=== PATIENT | male | born 1960 | race Caucasian/White ===

== ENCOUNTER → 2017-07-18 07:09 | Outpatient (CLI) | payer BC, OTHER, SELFPAY ==
[2017-07-18 10:34] LABS: Cholesterol 196 mg/dL (200); Glucose 127 mg/dL (74-106); High Density Lipoprotein 50 mg/dL; Triglycerides 99 mg/dL; Very Low Density Lipoprotein 20 mg/dL (5-40)
[2017-07-18 11:12] LABS: Hemoglobin A1c 7.7 % (4.2-6.3)
== END ==
PROVIDERS: Family Provider Family Medicine; PCP Family Medicine; Visit Provider Family Medicine
DX: E11.9 Type 2 diabetes mellitus without complications (principal); E78.5 Hyperlipidemia, unspecified
CPT/HCPCS: 36415; 80061; 82947; 83036

== ENCOUNTER → 2018-03-09 16:16 | Outpatient (CLI) | payer BC, OTHER, SELFPAY ==
[2016-03-22 03:32] VITALS: BMI 29.6
== END ==
PROVIDERS: Family Provider Family Medicine; PCP Family Medicine; Referring Provider Nurse Practitioner Family; Visit Provider Nurse Practitioner Family
DX: R30.0 Dysuria (principal)
CPT/HCPCS: 87086

== ENCOUNTER → 2018-08-11 07:25 | Outpatient (CLI) | payer BC, OTHER, SELFPAY ==
[2016-03-22 03:32] VITALS: BMI 29.6
[2018-08-11 10:31] LABS: Anion Gap 4 (5-15); BUN 12 mg/dL (7-18); BUN/Creat Ratio 11.8 RATIO (10-20); Calcium,Total 8.6 mg/dL (8.5-10.1); Chloride 104 mmol/L (98-107); Cholesterol 200 mg/dL (200); Creatinine, Serum 1.02 mg/dL (0.70-1.30); EST Glomerular Filtration Rate 80 mL/min (>60); Est Glom Filt Rate - Afr Amer 97 mL/min (>60); Glucose 101 mg/dL (74-106); High Density Lipoprotein 53 mg/dL; PSA,Total - Annual Screen 0.37 ng/mL (0.00-4.00); Potassium 3.7 mmol/L (3.5-5.1); Sodium Level 138 mmol/L (136-145); Triglycerides 99 mg/dL; Very Low Density Lipoprotein 20 mg/dL (5-40)
== END ==
PROVIDERS: Family Provider Family Medicine; PCP Family Medicine; Referring Provider Family Medicine; Visit Provider Family Medicine
DX: I10 Essential (primary) hypertension (principal); E11.9 Type 2 diabetes mellitus without complications; Z12.5 Encounter for screening for malignant neoplasm of prostate
CPT/HCPCS: 36415; 80048; 80061; 83036; 84153; G0103

== ENCOUNTER 2019-02-21 12:40 | Emergency (ER) | payer BC, OTHER, SELFPAY ==
[2019-02-21 12:40] VITALS: BP 135/79; PULSE 77; RESP 15; TEMP 36.7; O2SAT 99; BMI 27.7
--- NOTE | 2019-02-21 12:54 | CT_ITS ---
STUDY: CT ABDOMEN AND PELVIS WITHOUT CONTRAST REASON FOR EXAM: Male, 58 years old. Back pain. Possible kidney stone. RADIATION DOSAGE (If Supplied By Facility): CTDIvol = ( 13.90 ) mGy, DLP = ( 775.46 ) mGycm TECHNIQUE: Transaxial images were obtained from the dome of the diaphragm to the symphysis pubis without oral contrast, and without intravenous contrast. Sagittal and coronal images were reconstructed. Individualized dose optimization techniques were used for this CT. COMPARISON: None. FINDINGS: The visualized lung bases are unremarkable. The visualized portions of the heart are within normal limits. Normal liver. There is a solitary gallstone. This measures 9.2 mm. Normal spleen. Normal pancreas. Normal bilateral adrenal glands. Normal right kidney. Left perinephric stranding. The left kidney is engorged. Small amount of fluid is seen in the left perinephric space. There is evidence of left hydronephrosis and proximal left hydroureter due to a 6.5 mm calculus in the proximal left ureter. Normal visualized stomach. Normal small intestine. Normal colon. The appendix is visualized and appears normal. Normal abdominal aorta. Normal inferior vena cava. Normal retroperitoneum. Normal urinary bladder. There are prostatic calcifications. There is a left-sided inguinal hernia containing adipose tissue. Findings suggestive of hemangioma of the T12 vertebrae. CT/Abdomen/Pelvis without Cont IMPRESSION: 6.5 mm calculus in the proximal left ureter causing left hydronephrosis with left perinephric stranding and fluid in the left perinephric space. 9.2 mm solitary gallstone. Electronically Signed: Harsha Bah, at 14:16 EST , Service support ,
--- NOTE | 2019-02-21 12:58 | ED.VIS.GEN ---
History of Present Illness Chief Complaint: Back Informant: Patient Onset: Yesterday Maximum Severity: Mild Narrative: Patient complains of lumbar back discomfort radiating to the left side that began yesterday as he was stomping on what he describes a floating floor trying to get into position during installation, he stomped multiple times over the back discomfort when saw his chiropractor today who did some therapies he felt that the pain now is radiating to the left side like his last episode of kidney stone pain from 12 years ago when he presents for evaluation His diabetes is well controlled had no direct trauma to the back he has no numbness weakness paresthesias bowel and bladder habits have been unremarkable he has no other complaints Past Medical History - Allergies and Home Meds Allergies/Adverse Reactions: Allergies acetaminophen [From Tylenol] Allergy (Verified 02/21/19 12:43) Rash Primary Care Physician: Frederick Clarke MD [STAFF PHYSICIAN] - Past Medical History: - Smoking Status: Current some day smoker Review of Systems ROS: - Diabetes and kidney stones General: Denies: Chills, Fever, Sweats Eyes: Denies: Visual changes - bilaterally, Diplopia ENT: Denies: Rhinorrhea, Sore throat Cardiovascular: Denies: Chest pain, Palpitations Respiratory: Denies: Dyspnea, Cough, Dyspnea on exertion Gastrointestinal: Denies: Abdominal pain, Nausea, Vomiting, Diarrhea, Melena, Hematochezia Genitourinary: Denies: Dysuria, Hematuria, Frequency Musculoskeletal: Reports: Back pain. Denies: Extremity Pain Skin: Denies: Rash, Wounds Neurological: Denies: Headache, Weakness, Numbness Physical Exam Vital Signs/Narrative: Vital Signs Temp Pulse Resp BP Pulse Ox 02/21/19 12:40 98.0 F 77 15 135/79 H 99 General: Well nourished, Well developed, No Acute Distress Head: Normocephalic, Atraumatic Eyes: Perrl, EOMI ENT: Moist mucous membranes, No rhinorrhea Neck: Supple, Nontender Cardiovascular: Regular rate, Regular rhythm, No murmurs Respiratory: No distress, CTA bilaterally, Chest nontender Abdomen: Soft, Nontender, Nondistended, Normal bowel sounds Back: Normal Inspection, CVA tenderness, - - He has some discomfort over the left flank area Extremities: Nontender, No edema Skin: Normal color, No rash Neurological: Alert, Oriented x3, Cranial nerves II-XII grossly intact, Normal Strength, Normal Sensation Psychological: Normal affect, Normal Mood Diagnostic/Tx/Re-eval - Medical Decision Making Patient's physical exam is really unremarkable there is a subjective sense of vague low lumbar back pain he feels as if it is radiating more to the right there is no abdominal pain he is able to stand and walk heel raise toe raise knee bend he absolutely denies any abdominal pain and he assures me his bowel and habits have been normal Given his expressed concerns CT flank UA screening labs pain management Patient screening labs white count 14,000, UA with some hematuria, abdominal CT shows a left-sided 7 mm proximal structuring stone with hydronephrosis extravasation and see that report, Patient's been resting comfortably he has had intermittent flares of his pain there is no urology coverage at this institution, discussed transfer options with the patient his the facilities locally have no capacity per staff, the family has agreed to transfer to [facility] as they have local family in the area they would like to be transferred via private vehicle he has been treated with IV Rocephin and culture has been ordered He has been treated with pain management antibiotics I spoke with [facility] transfer center they have accepted him in transfer, Dr. Fabian and again the will take him by private vehicle directly to the ED Transfer to [facility] via private vehicle Final impression left side obstructing kidney stone ED Disposition - Plan for ED Patient: Diagnosis: Obstructing left kidney stone Referrals: Frederick Clarke MD [STAFF PHYSICIAN] - Additional Instructions: Go directly to [facility] emergency department today
[2019-02-21 13:23] LABS: Mucous, Urine 0 SEEN /hpf (<or=2+); Red Blood Cells-Urine 0 SEEN /hpf (0-5); Squamous Epithelial Cells - UA 0 SEEN /hpf (0-5); White Blood Cells 0 SEEN /hpf (0-5)
[2019-02-21 13:26] LABS: Color, Urine Yellow (Yellow); Glucose, Dipstick 1000 mg/dl (Normal); Leukocyte Esterase-Dipstick Negative /ul (Negative); Nitrite-Dipstick Negative (Negative); Occult Blood-Urine 150 /ul (Negative); Protein-Dipstick 30 mg/dl (Negative); Urine Bilirubin Dipstick Negative (Negative); Urine Clarity Sl. Cloudy (Clear); Urine Urobilinogen Normal (Normal)
[2019-02-21 13:28] LABS: Ketone-Dipstick 150 mg/dl (Negative)
[2019-02-21] MEDS: 0.9% Normal Saline 1,000 ML 250 ML IV (13:28)
[2019-02-21] MEDS: Ketorolac 30 MG/ML Syringe IV (13:29)
[2019-02-21] MEDS: morphine 8 MG/ML Syringe IV ×2 (13:29→15:19)
[2019-02-21] MEDS: Ondansetron 4 MG/2 ML Vial IV (13:29)
[2019-02-21] MEDS: 0.9% Normal Saline 1,000 ML 999 ML IV (13:31)
[2019-02-21 13:39] LABS: Bacteria RARE /hpf (None Seen)
[2019-02-21 13:40] LABS: Calcium Oxalate Crystals Ur 2+ /hpf (<or=2+)
[2019-02-21 13:48] LABS: Absolute Lymphocyte Count 0.49 X10^3/uL (0.83-4.51); Absolute Neutrophil Count 12.6 X10^3/uL (2.0-7.7); Basophil# 0.04 X10^3/uL; Basophil% 0.3 % (0-1); Eosinophil# 0.01 X10^3/uL; Eosinophils% 0.1 % (0-5); Hematocrit 45.2 % (40-54); Hemoglobin 15.4 g/dL (13.0-16.5); Lymphocyte # 0.49 X10^3/ul (4.0); Lymphocyte % 3.5 % (19-41); Mean Corp Hgb Conc 34.1 g/dL (32-36); Mean Corpuscular Hgb 28.8 pg (27.0-32.0); Mean Corpuscular Volume 84.5 fL (80-94); Mean Platelet Vol. 9.3 fl (6.2-12.0); Monocyte# 0.86 X10^3/uL; Monocyte% 6.1 % (0-10); NRBC Flagged by Analyzer 0 % (0-5); Neutrophil # 12.63 X10^3/uL (2.7-7.7); Neutrophil % 89.6 % (47-70); POSITIVE DIFFERENTIAL YES; Platelet Count 220 K/mm3 (150-450); RBC Distribution Width CV 12.3 % (11.6-14.6); RBC Distribution Width SD 37.3 fl (35.1-43.9); Red Blood Count 5.35 M/mm3 (4.6-6.2); White Blood Count 14.1 K/mm3 (4.4-11.0)
[2019-02-21 13:59] LABS: Anion Gap 6 (5-15); BUN 12 mg/dL (7-18); BUN/Creat Ratio 9.1 RATIO (10-20); Calcium,Total 8.5 mg/dL (8.5-10.1); Chloride 97 mmol/L (98-107); Creatinine, Serum 1.32 mg/dL (0.70-1.30); Differential Indicated SCAN CRITERIA MET; EST Glomerular Filtration Rate 59 mL/min (>60); Est Glom Filt Rate - Afr Amer 72 mL/min (>60); Estimated Creatinine Clearance 63.75 ml/min; Glucose 228 mg/dL (74-106); Sodium Level 132 mmol/L (136-145)
[2019-02-21] MEDS: Morphine 4 MG/ML Syringe IV (14:31)
[2019-02-21 15:22] VITALS: BP 133/71; PULSE 66; RESP 18; O2SAT 98
[2019-02-21] MEDS: Ceftriaxone 1 GM/50 ML BAG IV (15:48)
[2019-02-21] MEDS: oxyCODONE 5 MG Tablet PO (16:24)
[2019-02-21 16:42] VITALS: BP 133/71; PULSE 66; RESP 18; O2SAT 98
[2019-02-21 16:45] LABS: Bedside Glucose 196 mg/dL (70-110)
== END 2019-02-21 16:46 | disposition short-term general hospital (02) ==
LOC: ED 13:12
PROVIDERS: Emergency Provider Emergency Medicine; Family Provider Family Medicine; PCP Family Medicine
DX: N13.2 Hydronephrosis with renal and ureteral calculous obstruction (principal); K80.20 Calculus of gallbladder without cholecystitis without obstruction; E11.9 Type 2 diabetes mellitus without complications; F17.200 Nicotine dependence, unspecified, uncomplicated; Z79.84 Long term (current) use of oral hypoglycemic drugs; Z79.4 Long term (current) use of insulin
CPT/HCPCS: 36415; 74176; 80048; 81001; 82009; 82962; 85025; 87086; 87088; 96361; 96365; 96375; 96376; 99284; J2405

== ENCOUNTER → 2019-04-04 12:18 | Outpatient (CLI) | payer BC, OTHER, SELFPAY | PROVIDERS: PCP Family Medicine; Referring Provider Family Medicine; Visit Provider Family Medicine | DX: R68.89 Other general symptoms and signs (principal) | CPT/HCPCS: 87633; 87804 ==

== ENCOUNTER → 2020-02-04 09:58 | Outpatient (CLI) | payer BC, OTHER, SELFPAY ==
[2020-02-04 12:19] LABS: Anion Gap 5 (5-15); BUN 13 mg/dL (7-18); BUN/Creat Ratio 12.6 RATIO (10-20); Calcium,Total 8.7 mg/dL (8.5-10.1); Chloride 105 mmol/L (98-107); Cholesterol 242 mg/dL (200); Creatinine, Serum 1.03 mg/dL (0.70-1.30); EST Glomerular Filtration Rate 79 mL/min (>60); Est Glom Filt Rate - Afr Amer 95 mL/min (>60); Glucose 173 mg/dL (74-106); High Density Lipoprotein 53 mg/dL; Potassium 4.1 mmol/L (3.5-5.1); Sodium Level 139 mmol/L (136-145); Triglycerides 100 mg/dL; Very Low Density Lipoprotein 20 mg/dL (5-40)
[2020-02-04 12:33] LABS: Microalbumin,Random Urine 11.3 mg/L (NO RANGE EST.); Microalbumin:Creatinine Ratio 5.4 mg/g CRE (<30 mg/g CRE)
== END ==
PROVIDERS: PCP Family Medicine; Referring Provider Family Medicine; Visit Provider Family Medicine
DX: E11.9 Type 2 diabetes mellitus without complications (principal)
CPT/HCPCS: 36415; 80048; 80061; 82043; 82570

== ENCOUNTER → 2020-05-21 08:59 | Outpatient (CLI) | payer OTHER, SELFPAY ==
[2020-05-21 10:53] LABS: Anion Gap 4 (5-15); BUN 14 mg/dL (7-18); BUN/Creat Ratio 14.4 RATIO (10-20); Chloride 104 mmol/L (98-107); Cholesterol 200 mg/dL (200); Creatinine, Serum 0.97 mg/dL (0.70-1.30); EST Glomerular Filtration Rate 84 mL/min (>60); Est Glom Filt Rate - Afr Amer 102 mL/min (>60); Glucose 128 mg/dL (74-106); High Density Lipoprotein 49 mg/dL; Potassium 4.6 mmol/L (3.5-5.1); Sodium Level 139 mmol/L (136-145); Triglycerides 97 mg/dL; Very Low Density Lipoprotein 19 mg/dL (5-40)
[2020-05-21 10:55] LABS: Microalbumin,Random Urine 7.2 mg/L (NO RANGE EST.); Microalbumin:Creatinine Ratio 4.2 mg/g CRE (<30 mg/g CRE)
== END ==
PROVIDERS: PCP Family Medicine; Referring Provider Family Medicine; Visit Provider Family Medicine
DX: E11.9 Type 2 diabetes mellitus without complications (principal)
CPT/HCPCS: 36415; 80048; 80061; 82043; 82570

== ENCOUNTER 2023-06-22 13:20 | Observation (INO) | payer BC, SELFPAY ==
[2023-06-22] VITALS (12 sets, daily range): BP systolic 114–171; BP diastolic 66–86; PULSE 72–87; RESP 12–27; TEMP 35.8–37; O2SAT 95–99; BMI 27.4; BMI 26.7
--- NOTE | 2023-06-22 13:27 | CT_ITS ---
STUDY: CT HEAD STROKE PROTOCOL W/O CONTRAST INJECTION REASON FOR EXAM: Male, 62 years old. CVA RADIATION DOSAGE (If Supplied By Facility): CTDIvol = ( 44.99 ) mGy, DLP = ( 846.73 ) mGycm TECHNIQUE: Transaxial CT imaging of the brain was performed without administration of intravenous contrast material. Individualized dose optimization techniques were used for this CT. COMPARISON: No relevant priors. FINDINGS: Normal soft tissue structures. Normal calvarium. There is mild cerebral atrophy with widening of the extra-axial spaces and ventricular dilatation. Normal white matter tracts of the cerebral hemispheres. Normal basal ganglia and thalami. Normal brainstem. Normal cerebellum. There is prominence of the cisterna magna. This is a normal variant. There is no intracranial hemorrhage. There are no findings of an acute ischemic infarction. Mucosal polyp or retention cyst at the base of the right maxillary sinus. ASPECT score: 10 CT/STROKE Brain/Head without Cont IMPRESSION: Mild cerebral atrophy. No acute abnormality is seen. N.B. : The above Results were Read Back by Harsha Bah MD to Dr Lio MD, and understanding confirmed on 06/22/2023 13:47:54 (ET). Electronically Signed: Harsha Bah MD at 13:49 EDT ,
--- NOTE | 2023-06-22 13:28 | ED.VIS.STROK ---
HPI History of Present Illness Chief Complaint: Neuro S/Sx Informant: patient and friend Onset/Context/Timing Onset: Today and Hours Context: Gradual Onset Timing: Continuous Quality and Location: Positive for Expressive Aphasia Current Severity: Gone Maximum Severity: Mild Associated Symptoms Associated Symptoms: Negative for Headache, Nausea, Vomiting or Chest Pain Narrative Narrative: 62-year-old insulin dependent diabetic male. With onset of around 1140 with right eye blurry vision. Then about 1230 he developed trouble with his speech where he was having trouble putting words together according to his coworker is with him. He denies any headache. He denies any chest pain or shortness of breath. He had no recent illness. He has never had a stroke or mini stroke. He denies any fall or head trauma. He is not on any blood thinners. Symptoms appear to be improving. Prior similar symptoms: No Recent Illness/Hospitalization: No [facility] Medical History (Updated 06/22/23 @ 14:[address] Julian Vaca MD) Diabetes Kidney stone Home Medications ascorbic acid (vitamin C) 250 mg tablet 250 mg PO DAILY 11/24/22 [History Last Taken Unknown] cholecalciferol (vitamin D3) 25 mcg (1,000 unit) tablet 25 mcg PO DAILY 11/24/22 [History Last Taken Unknown] coenzyme Q10 100 mg tablet 100 mg PO DAILY 11/24/22 [History Last Taken Unknown] omega 4-qwj-oyw-fish oil 60 mg-90 mg-500 mg capsule (Fish Oil) 1 cap PO DAILY 11/24/22 [History Last Taken Unknown] pen needle, diabetic 31 gauge x 3/16 (Unifine Pentips) #1,200 ea 11/24/22 [History Last Taken Unknown] triamcinolone acetonide 0.1 % topical ointment topical 11/24/22 [History Last Taken Unknown] blood sugar diagnostic (True Metrix Glucose Test Strip) #150 ea 11/25/22 [Rx Last Taken Unknown] insulin lispro 100 unit/mL subcutaneous pen 15 unit (0.15 mL) subcut TID #15 mL 11/25/22 [Rx Last Taken Unknown] metformin 500 mg tablet,extended release 24 hr 500 mg PO BID dm #180 tabs 03/14/23 [Rx Last Taken Unknown] insulin glargine 100 unit/mL (3 mL) subcutaneous pen 25 unit (0.25 mL) subcut QHS #25 mL 04/11/23 [Rx Last Taken Unknown] Allergy/AdvReac Type Severity Reaction Status Date / Time acetaminophen [From Tylenol] Allergy Intermediate Rash, lip Verified 06/22/23 13:45 and eye swelling red dye Allergy Intermediate Cheeks Verified 06/22/23 13:45 flush, swelling Family History Grandfather Alcoholism Paternal Grandmother Diabetes Paternal Father Diabetes Melanoma Mother History of permanent cardiac pacemaker placement Surgical History Hx of appendectomy Hx of thyroidectomy Social History Smoking Status: Never smoker alcohol intake: never substance use type: does not use what type of physical activity do you participate in: walking frequency: 1-2 times per week ROS ROS ED ROS Narrative Blurry vision today right eye. Difficulty with putting his words together. Review of Systems ROS Unobtainable: Denies due to encephalopathy Constitutional Constitutional ED: Denies chills or fever(s) Eyes Eyes: Reports blurry vision ENT ENT ED: Denies ear pain, rhinorrhea or sore throat Cardiovascular Cardiovascular: Denies chest pain or palpitations Respiratory/Chest Respiratory/Chest: Denies cough or dyspnea Gastrointestinal Gastrointestinal: Denies abdominal pain Genitourinary Genitourinary ED: Denies dysuria or hematuria Musculoskeletal Musculoskeletal: Denies arthralgias, back pain, myalgias or neck pain Integumentary Denies abscess, Abrasions or rash Neurologic Neurologic: Denies headache(s), paresthesias or weakness Psychiatric Psychiatric: Denies anxiety or depression Endocrine Endocrinology: Denies polydipsia or polyphagia Hematologic/Lymphatic Hematologic/Lymphatic: Denies easy bleeding, easy bruising or lymphadenopathy Allergic/Immunologic Allergic/Immunologic ED: Denies mouth swelling or urticaria EXAM Physical Exam Narrative Exam Narrative: Well-appearing 62-year-old male that I saw in triage. Vital signs are stable afebrile. Pulse ox 97% on room air no signs hypoxia. H EENT exam pupils round reactive light. Extra motions are intact. No facial droop. Normal speech. No trauma. Neck nontender. Lungs clear to auscultation bilaterally. Heart regular rate and rhythm rate about 85 no murmur. Chest wall and ribs nontender. Abdomen soft nontender. Back nontender. Moving all 4 extremities. 5 out of 5 care professional strength. Dorsi plantarflexion intact. No drift. Fingertip to nose within normal limits. Neurologic exam at this time is normal. NIH is 0. Const Vital Signs: 06/22/23 13:23 06/22/23 13:32 06/22/23 13:41 Temperature 97.9 F 97.9 F Temperature Source Temporal Temporal Pulse Rate 87 87 Respiratory Rate 16 18 Blood Pressure 171/86 H 148/79 H Blood Pressure Mean 114 102 Pulse Ox 97 97 Oxygen Delivery Method Room Air Room Air 06/22/23 13:55 06/22/23 14:21 Temperature Temperature Source Pulse Rate 85 82 Respiratory Rate 22 H 15 Blood Pressure 149/70 H 146/81 H Blood Pressure Mean 96 102 Pulse Ox 97 96 Oxygen Delivery Method Room Air Room Air Positive well nourished and well developed; Negative for obese, cachectic, contractures or unkempt General Appearance ED: well developed and NAD; Negative for unkempt, cachectic or contractures Nutritional Appearance: Negative for cachectic or obese HEENT Reports moist mucous membranes; Denies dry mucous membranes atraumatic; Negative for trauma Nose: Negative for other Mouth ED: No dry mucous membranes Mouth: No dry mucous membranes Eyes PERRL and EOMs intact bilaterally General Eye ED: Negative for pale conjunctiva or scleral icterus Neck no lymphadenopathy, supple and no JVD General: Negative for tenderness Thyroid: Negative for other Chest Wall inspection of chest normal and palpation of chest normal Chest: Negative for other Resp normal respiratory effort and clear to auscultation bilaterally Effort and Inspection: Negative for retractions Auscultation: Negative for rales, rhonchi or wheezes Cardio no murmurs Rate: regular rate; Negative for bradycardia or tachycardic Rhythm: regular rhythm; Negative for abnormal rhythm GI normal to inspection, nondistended, normoactive bowel sounds, soft to palpation, non-tender, non-distended and no masses Inspection: Negative for abdominal distention Auscultation: normoactive bowel sounds Palpation: Negative for tender or guarding Back/Spine no CVA tenderness General Back: Negative for CVA tenderness Cervical Spine: Negative for cervical spine tenderness Thoracic Spine / Upper Back: Negative for thoracic spinal tenderness Lumbar Spine / Lower Back: Negative for lumbar spinal tenderness Extremity normal to inspection General Extremety ED: Negative for deformity, edema or tenderness General Extremity: Negative for deformity or edema Neuro oriented x3, CN's II-XII intact bilaterally and no sensory deficits noted Sensorium / Orientation: alert, oriented to person, oriented to place and oriented to time; Negative for orientation impaired, confused, lethargic or stuporous Speech: speech normal Motor Exam: strength 5/5 throughout Psych mental status grossly normal Appearance: Negative for unkempt Attitude: No agitated Mood & Affect: Negative for depressed, anxious or tearful Attention / Concentration: Negative for other Skin no wounds General Skin Exam: Negative for jaundice Lesions: no lesions Rashes: no rashes Trauma: Negative for abrasion or laceration NIHSS NIHSS Initial: 1a Level of Consciousness: 0 1b LOC Questions (Score 2 if aphasic/stupor): 0 1c LOC Commands (Only score 1st attempt): 0 2 Best Gaze (If aphasic, use reflexive mvmts.): 0 3 Visual: 0 4 Facial Palsy: 0 5 Motor Arm Right (UN = amputation/fusion): 0 5 Motor Arm Left: 0 6 Motor Leg Right: 0 6 Motor Leg Left: 0 7 Limb ataxia (Only + if out of proportion): 0 8 Sensory (Aphasia/stupor=0 or 1, coma=2): 0 9 Best Language: 0 10 Dysarthria (mute, coma=2, intubated=UN): 0 11 Extinction and Inattention (only scored if +): 0 Total Score: 0 MDM MDM MDM Narrative Medical decision making narrative: 62-year-old diabetic male started in blurry vision around 11:40 AM today and then around 1230 had dysarthria. Both now resolved. His neurologic exam currently is normal with NIH is 0. He is not attending to [facility]. He will undergo a stroke workup and a stroke team has been called. His blood sugar was 150. Repeat exam patient doing well at 2:50 PM. NIH remains 0. I did speak to the [facility] neurologist earlier in the patient's visit. She agrees his NIH is 0. She is concerned that he had a high risk TIA. Did want him on full dose aspirin and Plavix today's initial dose. And further evaluation with admission and MRI. Patient is understanding of this and will be admitted. I have the hospitalist on page. History & Record Review Discussion w/independent historian: Patient Additional record(s) reviewed:: Prior inpatient record, Prior outpatient record, Prior ED visit and Prior labs Lab Data Attestation: I reviewed the patient's lab results. Lab results narrative: CBC normal. White count of 5. H&H is 16 and 50. Platelets 222. PT and INR 14 and 1. PTT 24. Electrolytes show gap 5. Normal BUN and creatinine. Glucose 178. Troponin 4. Chest x-ray normal. CT brain unremarkable. CTA head and neck unremarkable. Labs: Laboratory Results - last 24 hr 06/22/23 06/22/23 13:25 13:33 WBC 5.0 RBC 5.98 Hgb 16.5 Hct 50.0 MCV 83.6 MCH 27.6 MCHC 33.0 RDW Std Deviation 39.7 RDW Coeff of Andrea 13.1 Plt Count 222 MPV 9.2 Immature Gran % (Auto) 0.200 Neut % (Auto) 57.8 Lymph % (Auto) 29.2 Payne % (Auto) 10.4 H Eos % (Auto) 1.6 Baso % (Auto) 0.8 Absolute Neuts (auto) 2.9 Absolute Lymphs (auto) 1.46 Nucleated RBC % 0 PT 14.0 INR 1.1 APTT 24.8 Sodium 138 Potassium 3.7 Chloride 102 Carbon Dioxide 31.0 Anion Gap 5 BUN 15 Creatinine 1.18 Estim Creat Clear Calc 67.88 Est GFR (MDRD) Af Amer 81 Est GFR (MDRD) Non-Af 67 BUN/Creatinine Ratio 12.7 Glucose 178 H Calcium 9.1 Troponin I High Sens 4 POC Glucose 167 H Radiography Chest X-Ray - ED: 1 View, Read by ED Physician, Read by Radiologist, Lungs, Mediastinum, Bony Structures, No Acute Disease and Chronic Changes Diagnostic Testing: Clinical Impression(s) from Imaging Studies Brain CT 06/22/23 13:27 IMPRESSION: Mild cerebral atrophy. No acute abnormality is seen. N.B. : The above Results were Read Back by Harsha Bah MD to Dr Lio MD, and understanding confirmed on 06/22/2023 13:47:54 (ET). Electronically Signed: Harsha Bah MD at 13:49 EDT , ADDENDUM: 06/22/23 1356 IMPRESSION: Mild cerebral atrophy. No acute abnormality is seen. N.B. : The above Results were Read Back by Harsha Bah MD to Dr Lio MD, and understanding confirmed on 06/22/2023 13:47:54 (ET). Electronically Signed: Harsha Bah MD at 13:49 EDT , Head/Neck CTA 06/22/23 13:32 IMPRESSION: Normal CTA Head and neck with contrast. N.B. : The above Results were Read Back by Harsha Bah MD to Dr Lio MD, and understanding confirmed on 06/22/2023 14:04:01 (ET). Electronically Signed: Harsha Bah MD at 14:06 EDT , ADDENDUM: 06/22/23 1413 IMPRESSION: Normal CTA Head and neck with contrast. N.B. : The above Results were Read Back by Harsha Bah MD to Dr Lio MD, and understanding confirmed on 06/22/2023 14:04:01 (ET). Electronically Signed: Harsha Bah MD at 14:06 EDT , Chest X-Ray 06/22/23 14:23 IMPRESSION: No acute abnormality is seen. Electronically Signed: Harsha Bah MD at 14:39 EDT , Chest x-ray, portable, single view shows no acute abnormality. Normal cardiac silhouette. Normal lung hodge. CT brain and CTA head and neck no acute abnormality as read by the radiologist. Rhythm Strip Rhythm Strip: Sinus Rhythm Rate: 83 Ectopy: None EKG Initial EKG: Attestation: I personally reviewed and interpreted this EKG as follows: Interpretation: Sinus Rhythm and No Acute Injury Pattern Comments: Normal sinus rhythm rate 83 no acute signs of VA or ischemia. Discharge Plan Triage Chief Complaint: Neuro S/Sx ED Provider: Julian Vaca Dx/Rx/DC Orders Clinical Impression: TIA (transient ischemic attack), History of diabetes mellitus Prescriptions: No Action (DME) pen needle, diabetic [Unifine Pentips] 31 gauge x 3/16 needle See Rx Instructions .ROUTE .MEDSUPPLY Qty: 1200 Patient Comments: use as directed Rx Instructions: As directed triamcinolone acetonide 0.1 % ointment topical Patient Comments: APPLY TO THE AFFECTED AREA(S) THREE TIMES DAILY NEEDED cholecalciferol (vitamin D3) 25 mcg (1,000 unit) tablet 25 mcg PO DAILY ascorbic acid (vitamin C) 250 mg tablet 250 mg PO DAILY omega 7-pwv-aug-fish oil [Fish Oil] 60-90-500 mg capsule 1 cap PO DAILY coenzyme Q10 100 mg tablet 100 mg PO DAILY (DME) True Metrix Glucose Test Strip Strip See Rx Instructions .Route Qty: 150 11RF Rx Instructions: 5 times daily insulin lispro 100 unit/mL insulin pen 15 unit subcut TID Qty: 15 5RF metformin 500 mg tablet extended release 24 hr 500 mg PO BID Qty: 180 3RF insulin glargine 100 unit/mL (3 mL) insulin pen 25 unit subcut QHS Qty: 25 3RF Primary Care Provider: Evon Franks Referrals: Evon Franks MD [Primary Care Provider] - Disposition Disposition: Acute Care Hospital [facility]
--- NOTE | 2023-06-22 13:32 | CT_ITS ---
STUDY: CTA HEAD AND NECK WITH CONTRAST REASON FOR EXAM: Male, 62 years old. Neuro deficit, acute, stroke suspected RADIATION DOSAGE (If Supplied By Facility): CTDIvol = ( 15.68 ) mGy, DLP = ( 708.01 ) mGycm TECHNIQUE: CT angiography was performed with a multi-detector CT scanner. Data acquisition was obtained from the skull base through the vertex following intravenous administration of IV 100mL [id number]-370. MIP images were reconstructed from the axial data set. Post-processing of the angiographic images was performed, with multiplanar reformation and 3D reconstruction. Individualized dose optimization techniques were used for this CT. COMPARISON: No relevant priors. FINDINGS: Normal bilateral petrous carotid arteries. There is calcified plaque formation of the right cavernous carotid artery, without a cross-sectional luminal stenosis. There is calcified plaque formation of the left cavernous carotid artery, without a cross-sectional luminal stenosis. Normal right A1 segments of the anterior cerebral artery. Normal left A1 segments of the anterior cerebral artery. Normal intact anterior communicating artery (ACOM). Normal bilateral A2 segments of the anterior cerebral arteries. Normal right M1 and M2 segments of the middle cerebral arteries, with a normal M1 bifurcation. Normal left M1 and M2 segments of the middle cerebral arteries, with a normal M1 bifurcation. Normal right posterior communicating artery (PCOM). Normal left posterior communicating artery (PCOM). Normal bilateral vertebral arteries. Normal basilar artery with a normal basilar bifurcation. The visualized bilateral superior cerebellar (SCA) arteries are normal. Normal bilateral P1, P2 and visualized P3 segments of the posterior cerebral arteries. There is no demonstrated aneurysm of the [place]. There is heterogeneous enlargement of the right lobe of the thyroid gland with several hypodense nodules. The left lobe of the thyroid is not visualized and most likely has been resected. AORTIC ARCH: There is a bovine origin of the great vessels arising from the aortic arch with a common origin of the brachiocephalic and left common carotid artery. Normal origin of the left subclavian artery. RIGHT CAROTID ARTERIES: Normal right common carotid artery (CCA). Normal right common carotid bulb. Normal origin of the right internal carotid (ICA) artery without a hemodynamically significant stenosis. Normal visualized cervical portion of the right internal carotid artery. Normal origin of the right external carotid artery (ECA). LEFT CAROTID ARTERIES: Normal left common carotid artery (CCA). Normal left common carotid bulb. Normal origin of the left internal carotid (ICA) artery without a hemodynamically significant stenosis. Normal visualized cervical portion of the left internal carotid artery. Normal origin of the left external carotid artery (ECA). VERTEBRAL ARTERIES: Normal bilateral vertebral arteries. CT/STROKE CTA Head AND Neck W/Con IMPRESSION: Normal CTA Head and neck with contrast. N.B. : The above Results were Read Back by Harsha Bah MD to Dr Lio MD, and understanding confirmed on 06/22/2023 14:04:01 (ET). Electronically Signed: Harsha Bah MD at 14:06 EDT ,
[2023-06-22 13:43] LABS: Absolute Lymphocyte Count 1.46 X10^3/uL (0.83-4.51); Absolute Neutrophil Count 2.9 X10^3/uL (2.0-7.7); Basophil# 0.04 X10^3/uL; Basophil% 0.8 % (0-1); Eosinophil# 0.08 X10^3/uL; Eosinophils% 1.6 % (0-5); Hemoglobin 16.5 g/dL (13.0-16.5); Lymphocyte # 1.46 X10^3/ul (0.83-4.51); Lymphocyte % 29.2 % (19-41); Mean Corpuscular Hgb 27.6 pg (27.0-32.0); Mean Corpuscular Volume 83.6 fL (80-94); Mean Platelet Vol. 9.2 fl (6.2-12.0); Monocyte# 0.52 X10^3/uL; Monocyte% 10.4 % (0-10); NRBC Flagged by Analyzer 0 % (0-5); Neutrophil # 2.89 X10^3/uL (2.7-7.7); Neutrophil % 57.8 % (47-70); Platelet Count 222 K/mm3 (150-450); RBC Distribution Width CV 13.1 % (11.6-14.6); RBC Distribution Width SD 39.7 fl (35.1-43.9); Red Blood Count 5.98 M/mm3 (4.6-6.2)
[2023-06-22 13:51] LABS: International Normalized Ratio 1.1
[2023-06-22 13:52] LABS: Partial Thromboplast Time 24.8 Seconds (24.1-36.2)
[2023-06-22 14:07] LABS: Anion Gap 5 (5-15); BUN 15 mg/dL (7-18); BUN/Creat Ratio 12.7 RATIO (10-20); Calcium,Total 9.1 mg/dL (8.5-10.1); Chloride 102 mmol/L (98-107); Creatinine, Serum 1.18 mg/dL (0.70-1.30); EST Glomerular Filtration Rate 67 mL/min (>60); Est Glom Filt Rate - Afr Amer 81 mL/min (>60); Estimated Creatinine Clearance 67.88 ml/min; Glucose 178 mg/dL (74-106); Potassium 3.7 mmol/L (3.5-5.1); Sodium Level 138 mmol/L (136-145); Troponin-I HS 4 pg/mL (3.0-78.0)
--- NOTE | 2023-06-22 14:23 | RAD_ITS ---
STUDY: X-RAY CHEST REASON FOR EXAM: Male, 62 years old. Neuro deficit, acute, stroke suspected TECHNIQUE: Single AP portable view of the chest. COMPARISON: None. FINDINGS: EKG electrodes are seen. Mild elevation of the right hemidiaphragm. There is no demonstrated pleural abnormality. Normal size heart. Normal mediastinum and geri. Normal visualized pulmonary arteries. Normal visualized aortic arch and descending thoracic aorta. Normal visualized thoracic spine. Normal visualized ribs, clavicles, and shoulders. There is no demonstrated abnormality of the visualized soft tissue structures of the upper abdomen. RAD/Chest 1 View IMPRESSION: No acute abnormality is seen. Electronically Signed: Harsha Bah MD at 14:39 EDT ,
[2023-06-22 14:32] LABS: Bedside Glucose 167 mg/dL (74-106)
--- NOTE | 2023-06-22 15:05 | PCM.HP.STD ---
HPI - General General Date of Admission: 06/22/23 Date of Service: 06/22/23 Chief Complaint: R Eye vision blurring, expressive aphasia/dysarthria. HPI Narrative The patient is a 62 y/o M w/ PMHx: Hx Thyroid nodule, Hx Nephrolithiasis, HTN no longer on medication, HLD no longer on medication, Diabetes mellitus type II who presents to the [facility] ED on 06/22/23 with history of onset right eye blurry vision at approximately [place] 40 on day of presentation and then at approximately 1230 difficulty with speech reportedly having difficulty getting his words out while attempting to talk to a coworker with no history of fall or trauma with some improvement of symptoms but given concerns prompted ED evaluation for stroke evaluation. In the ED upon initial physician evaluation NIH stroke scale 0 with resolution of symptoms. Workup in the ED included T97.9, heart rate 87, BP 171/86, respiratory rate 16, 97% on room air with most recent repeat vitals heart rate 82, BP 146/81, respiratory rate 15, 96% on room air, CBC with WBC 5, he was 16.5, MCV 83.6, platelet 222 without marked shift, unremarkable coags, BMP with glucose 178 otherwise unremarkable, troponin 4, CT of the brain with mild cerebral atrophy otherwise no acute intracranial finding, CTA head and neck unremarkable with no acute abnormality identified, chest x-ray with no acute cardiopulmonary findings, EKG with sinus rhythm with no acute evidence of ischemia. Tele-neurology stroke alert was called and given patient concern for high risk TIA recommended full dose aspirin and Plavix with admission and further evaluation. In the ED patient ministered full-strength aspirin therapy and Plavix loading dose 300 mg p.o. x 1. [facility] Medical History (Updated 06/22/23 @ 16:[address] Criss Odonnell MD) DMII (diabetes mellitus, type 2) History of thyroid nodule HTN (hypertension) Hyperlipidemia Kidney stone Home Medications ascorbic acid (vitamin C) 250 mg tablet 250 mg PO DAILY 11/24/22 [History Last Taken Unknown] cholecalciferol (vitamin D3) 25 mcg (1,000 unit) tablet 25 mcg PO DAILY 11/24/22 [History Last Taken Unknown] coenzyme Q10 100 mg tablet 100 mg PO DAILY 11/24/22 [History Last Taken Unknown] omega 6-xhy-gyl-fish oil 60 mg-90 mg-500 mg capsule (Fish Oil) 1 cap PO DAILY 11/24/22 [History Last Taken Unknown] pen needle, diabetic 31 gauge x 3/16 (Unifine Pentips) #1,200 ea 11/24/22 [History Last Taken Unknown] triamcinolone acetonide 0.1 % topical ointment 1 applic topical PRN PRN dry skin 11/24/22 [History Last Taken Unknown] blood sugar diagnostic (True Metrix Glucose Test Strip) #150 ea 11/25/22 [Rx Last Taken Unknown] insulin lispro 100 unit/mL subcutaneous pen 15 unit (0.15 mL) subcut TID #15 mL 11/25/22 [Rx Last Taken Unknown] metformin 500 mg tablet,extended release 24 hr 500 mg PO BID dm #180 tabs 03/14/23 [Rx Last Taken Unknown] insulin glargine 100 unit/mL (3 mL) subcutaneous pen 25 unit (0.25 mL) subcut QHS #25 mL 04/11/23 [Rx Last Taken Unknown] Allergy/AdvReac Type Severity Reaction Status Date / Time acetaminophen [From Tylenol] Allergy Intermediate Rash, lip Verified 06/22/23 13:45 and eye swelling red dye Allergy Intermediate Cheeks Verified 06/22/23 13:45 flush, swelling Family History Grandfather Alcoholism Paternal Grandmother Diabetes Paternal Father Diabetes Melanoma Mother History of permanent cardiac pacemaker placement Surgical History (Updated 06/22/23 @ 16:[address] Criss Odonnell MD) History of partial thyroidectomy Hx of appendectomy Social History (Updated 06/22/23 @ 15:[address] Criss Odonnell MD) household members: spouse Smoking Status: Never smoker alcohol intake: never substance use type: does not use what type of physical activity do you participate in: walking frequency: 1-2 times per week ROS ROS Narrative Admission Review of Systems: CONSTITUTIONAL: No weight loss, fever, chills, + weakness or fatigue. HEENT: + Right eye transient blurred vision. Eyes: No visual loss, double vision or yellow sclerae. Ears, Nose, Throat: No hearing loss, sneezing, congestion, runny nose or sore throat. SKIN: No rash or itching, lesions, wounds. CARDIOVASCULAR: No chest pain, chest pressure or chest discomfort, palpitations, edema, orthopnea, syncopal events. RESPIRATORY: No shortness of breath, cough or sputum, wheezing, hemoptysis. GASTROINTESTINAL: No anorexia, nausea, vomiting or diarrhea, abdominal pain, melena, BRBPR. GENITOURINARY: No dysuria, frequency, urgency or retention. NEUROLOGICAL: + Transient right eye blurred vision and expressive aphasia/dysarthria, resolved. Occasional chronic primarily right lower extremity pedal paresthesias. No headache, dizziness, syncope, paralysis, ataxia, focal weakness, change in bowel or bladder control, seizure. MUSCULOSKELETAL: + muscle, back pain, joint pain or stiffness. HEMATOLOGIC: No anemia, bleeding or bruising. LYMPHATICS: No enlarged nodes. No history of splenectomy. PSYCHIATRIC: No history of depression or anxiety. ENDOCRINOLOGIC: No reports of sweating, cold or heat intolerance. No polyuria or polydipsia. ALLERGIES: No history of asthma, hives, eczema or rhinitis. Vital Signs Vital Signs Vital Signs: 06/22/23 13:23 06/22/23 13:32 06/22/23 13:41 Temperature 97.9 F 97.9 F Temperature Source Temporal Temporal Pulse Rate 87 87 Respiratory Rate 16 18 Blood Pressure 171/86 H 148/79 H Blood Pressure Mean 114 102 Pulse Ox 97 97 Oxygen Delivery Method Room Air Room Air 06/22/23 13:55 06/22/23 14:21 06/22/23 14:55 Temperature Temperature Source Pulse Rate 85 82 85 Respiratory Rate 22 H 15 12 Blood Pressure 149/70 H 146/81 H 128/78 H Blood Pressure Mean 96 102 94 Pulse Ox 97 96 96 Oxygen Delivery Method Room Air Room Air Room Air 06/22/23 15:00 Temperature Temperature Source Pulse Rate 85 Respiratory Rate 12 Blood Pressure 128/78 H Blood Pressure Mean 94 Pulse Ox 96 Oxygen Delivery Method Room Air Weight Weight: 191 lb 6.4 oz Body Mass Index (BMI) 27.4 Physical Exam Narrative Physical Examination: General: Awake, alert, oriented x 3 and cooperative, seated upright in the ED bed in no apparent distress. Skin: Normal color, normal turgor, no icterus, no cyanosis. HEENT: AT/NC, EOMI, PERRLA, MMM, no carotid bruits or JVD noted. Lungs: CTA bilaterally, moderate effort, mild decrease BL bases, no rales, ronchi or wheezing. Heart: Regular rate and rhythm; no gallop, rub audible. Abdomen: Soft, NTTP, ND, normal BS, no HSM. Extremities: No cyanosis, clubbing, or edema. Neurological: Patient awake, alert, oriented as noted, cognitive function intact; pupils equally reactive to light and accommodation, cranial nerves grossly normal, moving all 4 extremities, no focal deficits, strength preserved, finger-nose and [id number] appropriate, unremarkable Babinski assessment, vision intact, sensation intact, NIH stroke scale remains 0. Psychiatric: Affect appears normal, no acute evidence of depressive or anxiety feelings. Results Lab / Micro Data 06/22/23 13:33 06/22/23 13:33 Labs: Laboratory Results - last 24 hr 06/22/23 13:25: POC Glucose 167 H 06/22/23 13:33: WBC 5.0, RBC 5.98, Hgb 16.5, Hct 50.0, MCV 83.6, MCH 27.6, MCHC 33.0, RDW Std Deviation 39.7, RDW Coeff of Andrea 13.1, Plt Count 222, MPV 9.2, Immature Gran % (Auto) 0.200, Neut % (Auto) 57.8, Lymph % (Auto) 29.2, [place] % (Auto) 10.4 H, Eos % (Auto) 1.6, Baso % (Auto) 0.8, Absolute Neuts (auto) 2.9, Absolute Lymphs (auto) 1.46, Nucleated RBC % 0, PT 14.0, INR 1.1, APTT 24.8, Sodium 138, Potassium 3.7, Chloride 102, Carbon Dioxide 31.0, Anion Gap 5, BUN 15, Creatinine 1.18, Estim Creat Clear Calc 67.88, Est GFR (MDRD) Af Amer 81, Est GFR (MDRD) Non-Af 67, BUN/Creatinine Ratio 12.7, Glucose 178 H, Calcium 9.1, Troponin I High Sens 4 Rhythm Strip Rhythm Strip: Sinus Rhythm Rate: 83 Ectopy: None Imaging Radiology Impression Brain CT 06/22/23 13:27 IMPRESSION: Mild cerebral atrophy. No acute abnormality is seen. N.B. : The above Results were Read Back by Harsha Bah MD to Dr Lio MD, and understanding confirmed on 06/22/2023 13:47:54 (ET). Electronically Signed: Harsha Bah MD at 13:49 EDT , ADDENDUM: 06/22/23 1356 IMPRESSION: Mild cerebral atrophy. No acute abnormality is seen. N.B. : The above Results were Read Back by Harsha Bah MD to Dr Lio MD, and understanding confirmed on 06/22/2023 13:47:54 (ET). Electronically Signed: Harsha Bah MD at 13:49 EDT , Head/Neck CTA 06/22/23 13:32 IMPRESSION: Normal CTA Head and neck with contrast. N.B. : The above Results were Read Back by Harsha Bah MD to Dr Lio MD, and understanding confirmed on 06/22/2023 14:04:01 (ET). Electronically Signed: Harsha Bah MD at 14:06 EDT , ADDENDUM: 06/22/23 1413 IMPRESSION: Normal CTA Head and neck with contrast. N.B. : The above Results were Read Back by Harsha Bah MD to Dr Lio MD, and understanding confirmed on 06/22/2023 14:04:01 (ET). Electronically Signed: Harsha Bha MD at 14:06 EDT , Chest X-Ray 06/22/23 14:23 IMPRESSION: No acute abnormality is seen. Electronically Signed: Harsha Bah MD at 14:39 EDT , Assessment & Plan Assessment/Plan (1) TIA (transient ischemic attack): PLAN: Plan The patient is a 62 y/o M w/ PMHx: Hx Thyroid nodule, Hx Nephrolithiasis, HTN no longer on medication, HLD no longer on medication, Diabetes mellitus type II who presents to the [facility] ED on 06/22/23 with history of onset right eye blurry vision at approximately [place] 40 on day of presentation and then at approximately 1230 difficulty with speech reportedly having difficulty getting his words out while attempting to talk to a coworker with no history of fall or trauma with some improvement of symptoms but given concerns prompted ED evaluation for stroke evaluation. #1. Transient R eye vision blurring, Expressive aphasia/dysarthria, Resolved concerning for TIA, High risk: Will admit to PCU, will obtain MRI Brain, ECHO, PT/OT/Speech/Nutrition evaluation per protocol. Will allow permissive HTN, maintain on asa 81 mg daily, Plavix 75 mg daily with loading doses given in the ED, AM FLP, fall precautions. Mag, TSH, FLP, HgbA1c requested. Maintain on fall and aspiration precautions. Will request continued neurology consultation. Per patient request will defer immediately high dose statin addition. #2. Hypertension: Patient off antihypertensive regimen for several years he notes, BP elevated upon presentation, given #1 will continue permissive hypertension with parent agents per stroke protocol and if becomes consistent with high blood pressure and oral regimen is needed we will add once clinically appropriate. #3. Diabetes mellitus type II: Hold oral home regimen, continue home insulin regimen, ADA diet, accu checks w/ ISS hemoglobin A1c requested as noted above number 1, nutrition consulted for education and teaching given #1 as noted above. #4. History of thyroid nodule: Status post partial thyroidectomy, TSH requested as noted. #5. Hyperlipidemia: Patient with history previously on a statin however he notes he did have some muscle aches with this. He is requesting deferring immediate addition. FLP in AM. #6. DVT Prophylaxis: Lovenox. #7. CODE status: Patient HCPOA is his who is present and living will is currently in place. Discussed CODE status at length including difference between FULL code, DNR-CCA and DNR-CC status. Following discussions about the differences in these status, requested Full Code status. Advanced Care Planning Face to Face Time: 16 minutes. Charges/Coding Visit Charges Inpatient E&M: 39953 Init Hosp L2 Procedures Hospitalists Procedures: 22817 Advncd Care Plan 30 Min
[2023-06-22] MEDS: Aspirin 325 MG Tablet PO (15:20)
[2023-06-22] MEDS: Clopidogrel Bisulfate 300 MG Tablet PO (15:20)
--- NOTE | 2023-06-22 16:04 | MRI_ITS ---
STUDY: MRI BRAIN WITHOUT CONTRAST REASON FOR EXAM: Male, 62 years old. TIA, R BLURRED VISION, APHASIA TECHNIQUE: Standardized multiplanar fat and water weighted pulse sequences were obtained through the brain without IV contrast COMPARISON: CT head June 22, 2023 HEMISPHERES, CEREBELLUM AND BRAINSTEM: Normal midline developmental anatomy. No Chiari malformation. Unremarkable sella. Cerebellar pontine angles are clear. No diffusion restriction. No evidence of prior hemorrhage. No intracranial mass or mass effect. Scattered subcortical apical T2 hyperintensities. PITUITARY: Infundibulum and pituitary have normal configuration. Midline structures appear normal. CSF SPACES: Mild global cerebral volume loss. No hydrocephalus. Basal cisterns are patent. VESSELS: 1. There are normal flow voids noted in the great vessels at the skull base ORBITS AND PARANASAL SINUSES: 1. Both globes, extraocular muscles, optic nerves and retrobulbar fat appear unremarkable. 2. Scattered mild paranasal sinus mucoperiosteal thickening. BONY ELEMENTS: Bony elements of the cranial vault, facial skeleton and skull base have normal appearance. SCALP AND SOFT TISSUES: Normal appearance of the soft tissues of the scalp and the visualized face MRI/Brain without Contrast IMPRESSION: 1. No intracranial mass, hemorrhage, or acute territorial infarct. 2. Mild senescent changes. 3. Mild sinus disease. Electronically Signed: Jaden Wood MD at 18:17 EDT ,
--- NOTE | 2023-06-22 16:04 | ECHOD_ITS ---
Reason For Study: TIA/CVA Procedure This was a 2D Doppler, Color Flow transthoracic echocardiogram. Exam performed in department. Left Ventricle Normal LV size. Mild concentric left ventricular hypertrophy. Apical false tendon noted. The left ventricular ejection fraction is 55 %. Normal diastology for age. Right Ventricle Mildly dilated right ventricle. Normal systolic function. Atria The left atrium is mildly enlarged. Normal right atrium. Bubble contrast study is negative for PFO/ASD. Mitral Valve Trivial mitral valve insufficiency. Tricuspid Valve Trivial tricuspid valve insufficiency. Normal pulmonary artery pressure. Aortic Valve Trisinus/trileaflet aortic valve. Pulmonic Valve The pulmonic valve is not well visualized. Great Vessels The aortic root is not well visualized. Pericardium/Pleural No pericardial effusion. MMode/2D Measurements & Calculations LVIDd: 4.5 cm IVSd: 1.2 cm LAV(MOD-bp): 43.9 ml LVIDs: 3.3 cm LVPWd: 1.0 cm LAV(MOD-bp) Indexed: 21.5 ml/m2 FS: 26.9 % LAV(MOD-sp2): 59.5 ml LAV(MOD-sp4): 25.8 ml SV(MOD-sp4): 49.0 ml SV(sp4-el): 51.3 ml LVAd ap4: 31.9 cm2 LVLd ap4: 8.4 cm EDV(MOD-sp4): 99.3 ml EDV(sp4-el): 103.1 ml LVAs ap4: 20.2 cm2 LVLs ap4: 6.7 cm ESV(MOD-sp4): 50.3 ml ESV(sp4-el): 51.8 ml EF(MOD-sp4): 49.3 % EF(sp4-el): 49.8 % LA A4 area: 11.5 cm2 LA dimension(2D): 4.0 cm RA A4 area: 16.9 cm2 TAPSE: 2.0 cm Time Measurements MV dec time: 0.21 sec Doppler Measurements & Calculations MV E max [place]: 63.2 cm/sec Lat Peak E' [place]: 10.2 cm/sec Med Peak E' [place]: 9.5 cm/sec MV A max [place]: 66.6 cm/sec E/E' lat: 6.2 E/E' med: 6.6 MV E/A: 0.95 MV V2 max: 87.2 cm/sec Ao V2 max: 99.5 cm/sec MV max P.1 mmHg MV dec slope: 299.4 cm/sec2 Ao max P.0 mmHg MV V2 mean: 43.6 cm/sec Ao V2 mean: 69.0 cm/sec MV mean P.97 mmHg Ao mean P.2 mmHg MV V2 VTI: 18.6 cm Ao V2 VTI: 23.9 cm AV (velocity ratio): 0.79 LV V1 max: 78.5 cm/sec PA V2 max: 120.7 cm/sec TR max [place]: 251.7 cm/sec LV V1 max P.5 mmHg PA V2 mean: 74.3 cm/sec TR max P.3 mmHg LV V1 mean P.3 mmHg LV V1 mean: 53.5 cm/sec LV V1 VTI: 18.8 cm ECHO/Echo Complete Interpretation Summary Mild concentric left ventricular hypertrophy. The left ventricular ejection fraction is 55 %. Mildly dilated right ventricle. The left atrium is mildly enlarged. Bubble contrast study is negative for PFO/ASD. Ordering Physician: Criss Odonnell Referring Physician: Evon Franks M.D. Performed By: Christen Chavez RCS
[2023-06-22 16:08] LABS: Magnesium 1.9 mg/dL (1.6-2.6)
[2023-06-22 17:43] LABS: Bedside Glucose 197 mg/dL (74-106)
[2023-06-22] MEDS: 0.9% Normal Saline (1000mL) 1,000 ML 100 ML IV (18:06)
[2023-06-22] MEDS: Insulin Lispro 100 UNIT/ML INSULN.PEN SC ×2 (18:06→21:51)
[2023-06-22] MEDS: Insulin Glargine-YFGN 100 UNIT/ML Pen 25 UNIT SC (21:52)
[2023-06-22 22:20] LABS: Bedside Glucose 166 mg/dL (74-106)
[2023-06-23 03:18] VITALS: BP 105/69; PULSE 63; RESP 16; TEMP 36.2; O2SAT 97
[2023-06-23 03:47] LABS: Bedside Glucose 108 mg/dL (74-106)
[2023-06-23 05:43] VITALS: BMI 27.8
--- NOTE | 2023-06-23 08:12 | PN.HOSP_ITS ---
Reason for Visit Reason for Visit: Diagnoses Transient cerebral ischemic attack, unspecified (06/22/23) Objective Data Objective Data Vital Signs: Vital Signs Temp Pulse Resp BP Pulse Ox O2 Del Method 36.2 C L 63 16 105/69 97 Room Air 06/23/23 03:18 06/23/23 03:18 06/23/23 03:18 06/23/23 03:18 06/23/23 03:18 06/23/23 03:21 Oxygen Delivery Method Room Air Weight: 88.1 kg Body Mass Index (BMI) 27.8 Intake & Output: Intake and Output for Last 24 Hours 06/21/23 06/22/23 06/23/23 23:59 23:59 23:59 Intake Total 250 / 550 1300 / 1300 Output Total 1120 / 1120 Balance 250 / -570 180 / 180 Lab / Micro Data 06/22/23 13:33 06/22/23 13:33 Labs: Laboratory Results - last 24 hr 06/22/23 13:25: POC Glucose 167 H 06/22/23 13:33: WBC 5.0, RBC 5.98, Hgb 16.5, Hct 50.0, MCV 83.6, MCH 27.6, MCHC 33.0, RDW Std Deviation 39.7, RDW Coeff of Andrea 13.1, Plt Count 222, MPV 9.2, Immature Gran % (Auto) 0.200, Neut % (Auto) 57.8, Lymph % (Auto) 29.2, [place] % (Auto) 10.4 H, Eos % (Auto) 1.6, Baso % (Auto) 0.8, Absolute Neuts (auto) 2.9, Absolute Lymphs (auto) 1.46, Nucleated RBC % 0, PT 14.0, INR 1.1, APTT 24.8, Sodium 138, Potassium 3.7, Chloride 102, Carbon Dioxide 31.0, Anion Gap 5, BUN 15, Creatinine 1.18, Estim Creat Clear Calc 67.88, Est GFR (MDRD) Af Amer 81, Est GFR (MDRD) Non-Af 67, BUN/Creatinine Ratio 12.7, Glucose 178 H, Calcium 9.1, Magnesium 1.9, Troponin I High Sens 4 06/22/23 16:24: POC Glucose 197 H 06/22/23 21:49: POC Glucose 166 H 06/23/23 03:16: POC Glucose 108 H Radiography Diagnostic Testing: Radiology Impression Brain CT 06/22/23 13:27 IMPRESSION: Mild cerebral atrophy. No acute abnormality is seen. N.B. : The above Results were Read Back by Harsha Bah MD to Dr Lio MD, and understanding confirmed on 06/22/2023 13:47:54 (ET). Electronically Signed: Harsha Bah MD at 13:49 EDT , ADDENDUM: 06/22/23 1356 IMPRESSION: Mild cerebral atrophy. No acute abnormality is seen. N.B. : The above Results were Read Back by Harsha Bah MD to Dr Lio MD, and understanding confirmed on 06/22/2023 13:47:54 (ET). Electronically Signed: Harsha Bah MD at 13:49 EDT , Head/Neck CTA 06/22/23 13:32 IMPRESSION: Normal CTA Head and neck with contrast. N.B. : The above Results were Read Back by Harsha Bah MD to Dr Lio MD, and understanding confirmed on 06/22/2023 14:04:01 (ET). Electronically Signed: Harsha Bah MD at 14:06 EDT , ADDENDUM: 06/22/23 1413 IMPRESSION: Normal CTA Head and neck with contrast. N.B. : The above Results were Read Back by Harsha Bah MD to Dr Lio MD, and understanding confirmed on 06/22/2023 14:04:01 (ET). Electronically Signed: Harsha Bah MD at 14:06 EDT , Chest X-Ray 06/22/23 14:23 IMPRESSION: No acute abnormality is seen. Electronically Signed: Harsha Bah MD at 14:39 EDT , Brain MRI 06/22/23 16:04 IMPRESSION: 1. No intracranial mass, hemorrhage, or acute territorial infarct. 2. Mild senescent changes. 3. Mild sinus disease. Electronically Signed: Jaden Wood MD at 18:17 EDT , Rhythm Strip Rhythm Strip: Sinus Rhythm Rate: 83 Ectopy: None Assessment & Plan Assessment/Plan (1) TIA (transient ischemic attack): PLAN: Plan Possible TIA * Transient R eye vision blurring, Expressive aphasia/dysarthria, R * MRI brain negative * ECHO, * PT/OT/Speech/ * Will allow permissive HTN, maintain * on asa 81 mg daily, Plavix 75 mg daily with loading doses given in the ED, AM FLP, fall precautions. * Will request continued neurology consultation. * Per patient request will defer immediately high dose statin addition. Chronic conditions: * Hypertension: Patient off antihypertensive regimen for several years he notes, BP elevated upon presentation, given #1 will continue permissive hypertension with parent agents per stroke protocol and if becomes consistent with high blood pressure and oral regimen is needed we will add once clinically appropriate. * Diabetes mellitus type II: Hold oral home regimen, continue home insulin regimen, ADA diet, accu checks w/ ISS hemoglobin A1c requested as noted above number 1, nutrition consulted for education and teaching * History of thyroid nodule: Status post partial thyroidectomy, TSH requested as noted. * Hyperlipidemia: Patient with history previously on a statin however he notes he did have some muscle aches with this. He is requesting deferring immediate addition. FLP in AM. DVT Prophylaxis: Lovenox. CODE status: Full
--- NOTE | 2023-06-23 08:12 | PCM.PN.HOSP ---
Reason for Visit Reason for Visit: Diagnoses Transient cerebral ischemic attack, unspecified (06/22/23) Subjective Subjective Patient had some visual symptoms cannot see the numbers particular on an [place] spreadsheet. Had issues regards to recalling names. States that the symptoms lasted about 45 minutes. Never had any issue before. Denies any headache though he has been dealing with some muscle strain in the back of his neck for some time now but that is not new. Objective Data Objective Data Vital Signs: Vital Signs Temp Pulse Resp BP Pulse Ox O2 Del Method 36.2 C L 63 16 105/69 97 Room Air 06/23/23 03:18 06/23/23 03:18 06/23/23 03:18 06/23/23 03:18 06/23/23 03:18 06/23/23 03:21 Oxygen Delivery Method Room Air Weight: 88.1 kg Body Mass Index (BMI) 27.8 Intake & Output: Intake and Output for Last 24 Hours 06/21/23 06/22/23 06/23/23 23:59 23:59 23:59 Intake Total 250 / 550 1300 / 1300 Output Total 1120 / 1120 Balance 250 / -570 180 / 180 Lab / Micro Data 06/23/23 07:48 06/23/23 07:48 Labs: Laboratory Results - last 24 hr 06/22/23 13:25: POC Glucose 167 H 06/22/23 13:33: WBC 5.0, RBC 5.98, Hgb 16.5, Hct 50.0, MCV 83.6, MCH 27.6, MCHC 33.0, RDW Std Deviation 39.7, RDW Coeff of Andrea 13.1, Plt Count 222, MPV 9.2, Immature Gran % (Auto) 0.200, Neut % (Auto) 57.8, Lymph % (Auto) 29.2, Frontier % (Auto) 10.4 H, Eos % (Auto) 1.6, Baso % (Auto) 0.8, Absolute Neuts (auto) 2.9, Absolute Lymphs (auto) 1.46, Nucleated RBC % 0, PT 14.0, INR 1.1, APTT 24.8, Sodium 138, Potassium 3.7, Chloride 102, Carbon Dioxide 31.0, Anion Gap 5, BUN 15, Creatinine 1.18, Estim Creat Clear Calc 67.88, Est GFR (MDRD) Af Amer 81, Est GFR (MDRD) Non-Af 67, BUN/Creatinine Ratio 12.7, Glucose 178 H, Calcium 9.1, Magnesium 1.9, Troponin I High Sens 4 06/22/23 16:24: POC Glucose 197 H 06/22/23 21:49: POC Glucose 166 H 06/23/23 03:16: POC Glucose 108 H Radiography Diagnostic Testing: Radiology Impression Brain CT 06/22/23 13:27 IMPRESSION: Mild cerebral atrophy. No acute abnormality is seen. N.B. : The above Results were Read Back by Harsha Bah MD to Dr Lio MD, and understanding confirmed on 06/22/2023 13:47:54 (ET). Electronically Signed: Harsha Bah MD at 13:49 EDT , ADDENDUM: 06/22/23 1356 IMPRESSION: Mild cerebral atrophy. No acute abnormality is seen. N.B. : The above Results were Read Back by Harsha Bah MD to Dr Lio MD, and understanding confirmed on 06/22/2023 13:47:54 (ET). Electronically Signed: Harsha Bah MD at 13:49 EDT , Head/Neck CTA 06/22/23 13:32 IMPRESSION: Normal CTA Head and neck with contrast. N.B. : The above Results were Read Back by Harsha Bah MD to Dr Lio MD, and understanding confirmed on 06/22/2023 14:04:01 (ET). Electronically Signed: Harsha Bah MD at 14:06 EDT , ADDENDUM: 06/22/23 1413 IMPRESSION: Normal CTA Head and neck with contrast. N.B. : The above Results were Read Back by Harsha Bah MD to Dr Lio MD, and understanding confirmed on 06/22/2023 14:04:01 (ET). Electronically Signed: Harsha Bah MD at 14:06 EDT , Chest X-Ray 06/22/23 14:23 IMPRESSION: No acute abnormality is seen. Electronically Signed: Harsha Bah MD at 14:39 EDT , Brain MRI 06/22/23 16:04 IMPRESSION: 1. No intracranial mass, hemorrhage, or acute territorial infarct. 2. Mild senescent changes. 3. Mild sinus disease. Electronically Signed: Jaden Wood MD at 18:17 EDT , Rhythm Strip Rhythm Strip: Sinus Rhythm Rate: 83 Ectopy: None Physical Exam Const alert and no apparent distress HEENT head/scalp atraumatic and moist oral mucous membranes Neuro Sensorium / Orientation: awake and alert Psych affect normal Assessment & Plan Assessment/Plan (1) TIA (transient ischemic attack): PLAN: Plan TIA Transient R eye vision blurring, Expressive aphasia/dysarthria, MRI brain negative ECHO showed EF of 55%, slight RV dilation and slight left atrial enlargement. Did review the patient's stress echocardiogram that he had in 2012 that showed an EF at that time that was 52%. For the RV dilation, patient did have a history of sleep apnea that was treated after they removed a benign thyroid mass and he no longer has apneic periods. This was verified by the patient's who actually counted the seconds when he would become apneic before his surgery. Did recommend that he follow-up with cardiology in regards to his echocardiogram report to see if there is anything additional would need to be done. Patient will continue with aspirin 81 mg daily. He states that he would use enteric-coated because he is better tolerated by himself. As well as 20 mg of atorvastatin. Patient does have a history of myalgias related with rosuvastatin. Told the patient that the may need to be titrated up if he seems to tolerate 20 mg. Patient will also have a 30-day event monitor. Recommend the patient follow-up with neurology. Patient will be given the number of Dr. Montes but patient advised that he is welcome to follow-up with any neurologist Chronic conditions: Hypertension: Patient off antihypertensive regimen for several years he notes, BP elevated upon presentation, given #1 will continue permissive hypertension with parent agents per stroke protocol and if becomes consistent with high blood pressure and oral regimen is needed we will add once clinically appropriate. Diabetes mellitus type II: Hold oral home regimen, continue home insulin regimen, ADA diet, accu checks w/ ISS hemoglobin A1c requested as noted above number 1, nutrition consulted for education and teaching History of thyroid nodule: Status post partial thyroidectomy, TSH requested as noted. Hyperlipidemia: Patient with history previously on a statin however he notes he did have some muscle aches with this. He is requesting deferring immediate addition. DVT Prophylaxis: Lovenox. CODE status: Full
[2023-06-23 08:22] LABS: Absolute Lymphocyte Count 1.27 X10^3/uL (0.83-4.51); Absolute Neutrophil Count 2.2 X10^3/uL (2.0-7.7); Basophil# 0.03 X10^3/uL; Basophil% 0.7 % (0-1); Eosinophil# 0.09 X10^3/uL; Eosinophils% 2.2 % (0-5); Hemoglobin 15.5 g/dL (13.0-16.5); Lymphocyte # 1.27 X10^3/ul (0.83-4.51); Lymphocyte % 31.1 % (19-41); Mean Corp Hgb Conc 33.7 g/dL (32-36); Mean Corpuscular Hgb 28.1 pg (27.0-32.0); Mean Corpuscular Volume 83.3 fL (80-94); Mean Platelet Vol. 9.1 fl (6.2-12.0); Monocyte# 0.46 X10^3/uL; Monocyte% 11.2 % (0-10); NRBC Flagged by Analyzer 0 % (0-5); Neutrophil # 2.23 X10^3/uL (2.7-7.7); Neutrophil % 54.6 % (47-70); Platelet Count 214 K/mm3 (150-450); RBC Distribution Width CV 13.1 % (11.6-14.6); RBC Distribution Width SD 39.8 fl (35.1-43.9); Red Blood Count 5.52 M/mm3 (4.6-6.2); White Blood Count 4.1 K/mm3 (4.4-11.0)
[2023-06-23 09:13] LABS: ALB/GLOB Ratio 1.1 RATIO (0.9-2.4); AST(SGOT) 11 U/L (15-37); Alanine Aminotransfer ALT/SGPT 16 U/L (16-61); Albumin, Serum 3.3 g/dL (3.2-5.0); Alkaline Phosphatase 71 U/L (45-117); Anion Gap 5 (5-15); BUN 14 mg/dL (7-18); BUN/Creat Ratio 13.7 RATIO (10-20); Calcium,Total 8.2 mg/dL (8.5-10.1); Chloride 109 mmol/L (98-107); Cholesterol 239 mg/dL (200); Creatinine, Serum 1.02 mg/dL (0.70-1.30); EST Glomerular Filtration Rate 79 mL/min (>60); Est Glom Filt Rate - Afr Amer 95 mL/min (>60); Estimated Creatinine Clearance 85.02 ml/min; Globulin 2.9 g/dL (2.2-4.2); Glucose 113 mg/dL (74-106); High Density Lipoprotein 46 mg/dL; Potassium 3.6 mmol/L (3.5-5.1); Protein, Total 6.2 g/dL (6.4-8.2); Sodium Level 140 mmol/L (136-145); Thyroid Stim Hormone (TSH) 1.59 uIU/mL (0.358-3.74); Triglycerides 94 mg/dL; Very Low Density Lipoprotein 19 mg/dL (5-40)
[2023-06-23 09:20] VITALS: BP 129/78; PULSE 93; RESP 16; TEMP 36.5; O2SAT 94
[2023-06-23 09:46] VITALS: O2SAT 96
[2023-06-23] MEDS: Aspirin 81 MG TAB.CHEW PO (10:04)
[2023-06-23] MEDS: Clopidogrel Bisulfate 75 MG Tablet PO (10:12)
--- NOTE | 2023-06-23 11:01 | CASEMGMT ---
SW completed a PHQ 9 with patient as he may have had a TIA. Patient scored a 1 which indicates minimal depression. Patient denied any need for resources. Lakeisha SHARP
[2023-06-23] MEDS: Insulin Lispro 100 UNIT/ML INSULN.PEN 15 UNIT SC (12:01)
[2023-06-23 12:45] VITALS: BMI 27.8
--- NOTE | 2023-06-23 13:06 | STROKE.CONS ---
Assessment and Plan: Stroke Assessment/Plan WES MCCARTY is a 62 M with a history of DM, HTN and HLP who presents for evaluation of transient right sided visual changes and word finding difficulty that resolved. He reports that he is back to baseline when he was seen on teleneurology. Neurological examination is within normal limits. Neuroimaging including brain MRI is negative for acute infarct, CTA head and neck is without significant stenosis. TTE was reviewed which shows mild LA dilatation and normal EF. The patient findings/presentation are consistent with TIA (transient ischemic attack). Recommendations: 1- ASA daily. 2- Statin goal LDL < 70. 3- Hypertension control (goal BP < 140/90). 4- Diabetes management. Check HBA1c. 5- Recommend Holter monitor at discharge for cardiac monitoring. 6- Healthy diet and exercise. [Quick text reminder: .OSUtnk/.OSUnontnk] HPI Consult Data Date of Consult: 06/23/23 HPI Narrative Reason for Consultation: Righ sided visual changes and word finding difficulty HPI Narrative: WES MCCARTY, is a 62 M who presents with transient episode of right sided visual changes and difficulty finding words that lasted for approximately 2 hours. He reports that he is now back to his normal self. [facility] Medical History (Updated 06/22/23 @ 16:[address] Criss Odonnell MD) DMII (diabetes mellitus, type 2) History of thyroid nodule HTN (hypertension) Hyperlipidemia Kidney stone Home Medications ascorbic acid (vitamin C) 250 mg tablet 250 mg PO DAILY 11/24/22 [History Last Taken Unknown] cholecalciferol (vitamin D3) 25 mcg (1,000 unit) tablet 25 mcg PO DAILY 11/24/22 [History Last Taken Unknown] coenzyme Q10 100 mg tablet 100 mg PO DAILY 11/24/22 [History Last Taken Unknown] omega 4-oct-nex-fish oil 60 mg-90 mg-500 mg capsule (Fish Oil) 1 cap PO DAILY 11/24/22 [History Last Taken Unknown] pen needle, diabetic 31 gauge x 3/16 (Unifine Pentips) #1,200 ea 11/24/22 [History Last Taken Unknown] triamcinolone acetonide 0.1 % topical ointment 1 applic topical PRN PRN dry skin 11/24/22 [History Last Taken Unknown] blood sugar diagnostic (True Metrix Glucose Test Strip) #150 ea 11/25/22 [Rx Last Taken Unknown] insulin lispro 100 unit/mL subcutaneous pen 15 unit (0.15 mL) subcut TID #15 mL 11/25/22 [Rx Last Taken Unknown] metformin 500 mg tablet,extended release 24 hr 500 mg PO BID dm #180 tabs 03/14/23 [Rx Last Taken Unknown] insulin glargine 100 unit/mL (3 mL) subcutaneous pen 25 unit (0.25 mL) subcut QHS #25 mL 04/11/23 [Rx Last Taken Unknown] aspirin 81 mg chewable tablet 81 mg PO BREAKFAST #0 tabs 06/23/23 [Rx Last Taken Unknown] atorvastatin 20 mg tablet 20 mg PO QHS #30 tabs 06/23/23 [Rx Last Taken Unknown] Allergy/AdvReac Type Severity Reaction Status Date / Time acetaminophen [From Tylenol] Allergy Intermediate Rash, lip Verified 06/22/23 13:45 and eye swelling red dye Allergy Intermediate Cheeks Verified 06/22/23 13:45 flush, swelling Family History Grandfather Alcoholism Paternal Grandmother Diabetes Paternal Father Diabetes Melanoma Mother History of permanent cardiac pacemaker placement Surgical History (Updated 06/22/23 @ 16:[address] Criss Odonnell MD) History of partial thyroidectomy Hx of appendectomy Social History (Updated 06/22/23 @ 15:[address] Criss Odonnell MD) household members: spouse Smoking Status: Never smoker alcohol intake: never substance use type: does not use what type of physical activity do you participate in: walking frequency: 1-2 times per week Vital Signs Vital Signs Vital Signs: 06/22/23 13:23 06/22/23 13:32 06/22/23 13:41 Temperature 97.9 F 97.9 F Temperature Source Temporal Temporal Pulse Rate 87 87 Respiratory Rate 16 18 Respiratory Effort Respiratory Depth Respiratory Pattern Blood Pressure 171/86 H 148/79 H Blood Pressure [BP] Blood Pressure Mean 114 102 Blood Pressure Mean [BP] Blood Pressure Source Blood Pressure Source [BP] Blood Pressure Position Blood Pressure Position [BP] Blood Pressure Location Blood Pressure Location [BP] Pulse Ox 97 97 Oxygen Delivery Method Room Air Room Air 06/22/23 13:55 06/22/23 14:21 06/22/23 14:55 Temperature Temperature Source Pulse Rate 85 82 85 Respiratory Rate 22 H 15 12 Respiratory Effort Respiratory Depth Respiratory Pattern Blood Pressure 149/70 H 146/81 H 128/78 H Blood Pressure [BP] Blood Pressure Mean 96 102 94 Blood Pressure Mean [BP] Blood Pressure Source Blood Pressure Source [BP] Blood Pressure Position Blood Pressure Position [BP] Blood Pressure Location Blood Pressure Location [BP] Pulse Ox 97 96 96 Oxygen Delivery Method Room Air Room Air Room Air 06/22/23 15:00 06/22/23 15:07 06/22/23 16:07 Temperature 98.6 F 98.1 F Temperature Source Oral Pulse Rate 85 79 72 Respiratory Rate 12 27 H 12 Respiratory Effort Respiratory Depth Respiratory Pattern Blood Pressure 128/78 H 114/66 Blood Pressure [BP] 139/80 H Blood Pressure Mean 94 82 Blood Pressure Mean [BP] 99 Blood Pressure Source Blood Pressure Source [BP] Monitor Blood Pressure Position Blood Pressure Position [BP] Supine Blood Pressure Location Blood Pressure Location [BP] Left Arm Pulse Ox 96 97 96 Oxygen Delivery Method Room Air Room Air 06/22/23 16:27 06/22/23 20:05 06/22/23 21:44 Temperature 96.5 F L Temperature Source Oral Pulse Rate 75 Respiratory Rate 16 Respiratory Effort Respiratory Depth Respiratory Pattern Blood Pressure Blood Pressure [BP] 142/78 H Blood Pressure Mean Blood Pressure Mean [BP] 99 Blood Pressure Source Blood Pressure Source [BP] Monitor Blood Pressure Position Blood Pressure Position [BP] Semi-Fowlers Blood Pressure Location Blood Pressure Location [BP] Left Arm Pulse Ox 97 99 95 Oxygen Delivery Method Room Air Room Air Room Air 06/23/23 03:18 06/23/23 03:21 06/23/23 09:46 Temperature 97.2 F L Temperature Source Oral Pulse Rate 63 Respiratory Rate 16 Respiratory Effort Normal Non-Labored Respiratory Depth Normal Respiratory Pattern Normal Blood Pressure 105/69 Blood Pressure [BP] Blood Pressure Mean 81 Blood Pressure Mean [BP] Blood Pressure Source Monitor Blood Pressure Source [BP] Blood Pressure Position Semi-Fowlers Blood Pressure Position [BP] Blood Pressure Location Left Arm Blood Pressure Location [BP] Pulse Ox 97 96 Oxygen Delivery Method Room Air Room Air Room Air 06/23/23 09:20 Temperature 97.7 F L Temperature Source Oral Pulse Rate 93 Respiratory Rate 16 Respiratory Effort Respiratory Depth Respiratory Pattern Blood Pressure 129/78 H Blood Pressure [BP] Blood Pressure Mean 95 Blood Pressure Mean [BP] Blood Pressure Source Monitor Blood Pressure Source [BP] Blood Pressure Position Semi-Fowlers Blood Pressure Position [BP] Blood Pressure Location Left Arm Blood Pressure Location [BP] Pulse Ox 94 Oxygen Delivery Method Room Air Weight Weight: 88.1 kg Body Mass Index (BMI) 27.8 NIHSS NIHSS Nursing Documentation NIHSS Nursing Documentation: NIHSS: Ischemic Stroke/TIA Start: 06/22/23 16:04 Text: For PCU Patients: NIH and Neuro Check every 4 Status: Complete hours, PRN and with change in RN caregiver. Freq: [id number] Protocol: Activity Type Activity Date Activity User E-sign Co-sign Detail Recorded Client Recorded Date Recorded By Document 06/22/23 17:57 NB Desktop 06/22/23 17:59 NB 06/22/23 17:57 NIH Stroke Scale [NIHSS] A score of 0 is normal or asymptomatic . Total possible score is 42. Inpatient: RN or Physician to activate a stroke alert for onset of new stroke symptoms or with NIHSS increase >/= 3 points. Following change in neurological status, NIHSS will be performed per physician order or more frequently PRN. -1a. Level of Consciousness Alert; keenly responsive -1b. LOC Questions Answers BOTH questions correctly. -1c. LOC Commands Performs both tasks correctly . -2. Best Gaze Normal -3. Visual No visual loss -4. Facial Palsy Normal symmetrical movements -5a. Left Arm No drift; arm holds 90 (or 45 ) degrees for full 10 seconds -5b. Right Arm No drift; arm holds 90 (or 45 ) degrees for full 10 seconds -6a. Left Leg No drift; leg holds 30-degree position for full 5 seconds -6b. Right Leg No drift; leg holds 30-degree position for full 5 seconds -7. Limb Ataxia Absent -8. Sensory Normal; no sensory loss -9. Best Language No aphasia; normal -10. Dysarthria Normal -11. Extinction and Inattention No abnormality -Total 0 Query Text:A score of 0 is normal or asymptomatic. Total possible score is 42 . ED: Notify Physician for NIHSS increase by > / = 3 points. Inpatient: RN or Physician to activate a stroke alert for NIHSS increase of > / = 3 points. Coma Scale [Assess] -Eye Opening Spontaneous -Motor Obeys Commands -Verbal Oriented [Total] -Coma Scale Total 15 NIHSS 1a. Level of Consciousness: Alert; keenly responsive 1b. LOC Questions: Answers BOTH questions correctly. 1c. LOC Commands: Performs both tasks correctly. 2. Best Gaze: Normal 3. Visual: No visual loss 4. Facial Palsy: Normal symmetrical movements 5a. Left Arm: No drift; arm holds 90 (or 45) degrees for full 10 seconds 5b. Right Arm: No drift; arm holds 90 (or 45) degrees for full 10 seconds 6a. Left Leg: No drift; leg holds 30-degree position for full 5 seconds 6b. Right Leg: No drift; leg holds 30-degree position for full 5 seconds 7. Limb Ataxia: Absent 8. Sensory: Normal; no sensory loss 9. Best Language: No aphasia; normal 10. Dysarthria: Normal 11. Extinction and Inattention: No abnormality Total: 0 Lab / Micro Data 06/23/23 07:48 06/23/23 07:48 Labs: Laboratory Results - last 24 hr 06/22/23 13:25: POC Glucose 167 H 06/22/23 13:33: WBC 5.0, RBC 5.98, Hgb 16.5, Hct 50.0, MCV 83.6, MCH 27.6, MCHC 33.0, RDW Std Deviation 39.7, RDW Coeff of Andrea 13.1, Plt Count 222, MPV 9.2, Immature Gran % (Auto) 0.200, Neut % (Auto) 57.8, Lymph % (Auto) 29.2, Terrell % (Auto) 10.4 H, Eos % (Auto) 1.6, Baso % (Auto) 0.8, Absolute Neuts (auto) 2.9, Absolute Lymphs (auto) 1.46, Nucleated RBC % 0, PT 14.0, INR 1.1, APTT 24.8, Sodium 138, Potassium 3.7, Chloride 102, Carbon Dioxide 31.0, Anion Gap 5, BUN 15, Creatinine 1.18, Estim Creat Clear Calc 67.88, Est GFR (MDRD) Af Amer 81, Est GFR (MDRD) Non-Af 67, BUN/Creatinine Ratio 12.7, Glucose 178 H, Calcium 9.1, Magnesium 1.9, Troponin I High Sens 4 06/22/23 16:24: POC Glucose 197 H 06/22/23 21:49: POC Glucose 166 H 06/23/23 03:16: POC Glucose 108 H 06/23/23 07:48: WBC 4.1 L, RBC 5.52, Hgb 15.5, Hct 46.0, MCV 83.3, MCH 28.1, MCHC 33.7, RDW Std Deviation 39.8, RDW Coeff of Andrea 13.1, Plt Count 214, MPV 9.1, Immature Gran % (Auto) 0.200, Neut % (Auto) 54.6, Lymph % (Auto) 31.1, Terrell % (Auto) 11.2 H, Eos % (Auto) 2.2, Baso % (Auto) 0.7, Absolute Neuts (auto) 2.2, Absolute Lymphs (auto) 1.27, Nucleated RBC % 0, Sodium 140, Potassium 3.6, Chloride 109 H, Carbon Dioxide 26.0, Anion Gap 5, BUN 14, Creatinine 1.02, Estim Creat Clear Calc 85.02, Est GFR (MDRD) Af Amer 95, Est GFR (MDRD) Non-Af 79, BUN/Creatinine Ratio 13.7, Glucose 113 H, Hemoglobin A1c 7.0 H, Calcium 8.2 L, Total Bilirubin 1.50 H, AST 11 L, ALT 16, Alkaline Phosphatase 71, Total Protein 6.2 L, Albumin 3.3, Globulin 2.9, Albumin/Globulin Ratio 1.1, Triglycerides 94, Cholesterol 239 H, LDL Cholesterol 174 H, VLDL Cholesterol 19, HDL Cholesterol 46, TSH 1.59 Rhythm Strip Rhythm Strip: Sinus Rhythm Rate: 83 Ectopy: None Imaging Radiology Impression Brain CT 06/22/23 13:27 IMPRESSION: Mild cerebral atrophy. No acute abnormality is seen. N.B. : The above Results were Read Back by Harsha Bah MD to Dr Lio MD, and understanding confirmed on 06/22/2023 13:47:54 (ET). Electronically Signed: Harsha Bah MD at 13:49 EDT , ADDENDUM: 06/22/23 1356 IMPRESSION: Mild cerebral atrophy. No acute abnormality is seen. N.B. : The above Results were Read Back by Harsha Bah MD to Dr Lio MD, and understanding confirmed on 06/22/2023 13:47:54 (ET). Electronically Signed: Harsha Bah MD at 13:49 EDT , Head/Neck CTA 06/22/23 13:32 IMPRESSION: Normal CTA Head and neck with contrast. N.B. : The above Results were Read Back by Harsha Bah MD to Dr Lio MD, and understanding confirmed on 06/22/2023 14:04:01 (ET). Electronically Signed: Harsha Bah MD at 14:06 EDT , ADDENDUM: 06/22/23 1413 IMPRESSION: Normal CTA Head and neck with contrast. N.B. : The above Results were Read Back by Harsha Bah MD to Dr Lio MD, and understanding confirmed on 06/22/2023 14:04:01 (ET). Electronically Signed: Harsha Bah MD at 14:06 EDT , Chest X-Ray 06/22/23 14:23 IMPRESSION: No acute abnormality is seen. Electronically Signed: Harsha Bah MD at 14:39 EDT , Brain MRI 06/22/23 16:04 IMPRESSION: 1. No intracranial mass, hemorrhage, or acute territorial infarct. 2. Mild senescent changes. 3. Mild sinus disease. Electronically Signed: Jaden Wood MD at 18:17 EDT , Echocardiogram 06/22/23 16:04 Interpretation Summary Mild concentric left ventricular hypertrophy. The left ventricular ejection fraction is 55 %. Mildly dilated right ventricle. The left atrium is mildly enlarged. Bubble contrast study is negative for PFO/ASD. Ordering Physician: Criss Odonnell Referring Physician: Evon Franks M.D. Performed By: Christen Chavez RCS Active Medications Active Medications Active Medications: Current Medications Generic Name Dose Route Start Last Admin Trade Name Freq PRN Reason Stop Dose Admin Al Hydroxide/Mg Hydroxide 30 ml 06/22/23 16:04 Mag Hydrox/Al Hydrox/Simeth 30 Ml Udc PO Q6H PRN PRN Gastric Burning Aspirin 81 mg 06/23/23 08:00 06/23/23 10:04 Aspirin 81 Mg Tab.Chew PO 81 mg BREAKFAST GABRIEL Administration Clopidogrel Bisulfate 75 mg 06/23/23 10:00 06/23/23 10:12 Clopidogrel Bisulfate 75 Mg Tablet PO 75 mg DAILY GABRIEL Administration Dextrose 0 gm 06/22/23 16:04 Dextrose 50%-Water 25 Gm/50 Ml Disp.Syrin IV X1 PRN HYPOGLYCEMIA Protocol Enoxaparin Sodium 40 mg 06/23/23 10:00 06/23/23 10:05 Enoxaparin 40 Mg/0.4 Ml Syringe SC Not Given DAILY GABRIEL Glucagon 1 mg 06/22/23 16:04 Glucagon 1 Mg/Ml Syringe IM X1 PRN HYPOGLYCEMIA Hydralazine HCl 5 mg 06/22/23 16:04 Hydralazine 20 Mg/Ml Vial IV 06/23/23 16:04 Q30M PRN maintain BP parameters with HR <60 Insulin Glargine 25 unit 06/22/23 22:00 06/22/23 21:52 Insulin Glargine-Yfgn 100 Unit/Ml Pen SC 25 unit QHS GABRIEL Administration Insulin Human Lispro 15 unit 06/23/23 07:00 06/23/23 12:01 Insulin Lispro 100 Unit/Ml Insuln.Pen SC 8 units TIDAC [facility] Administration Insulin Human Lispro 0 unit 06/22/23 16:04 06/23/23 12:03 Insulin Lispro 100 Unit/Ml Insuln.Pen SC Not Given ACHS [facility] Protocol Labetalol HCl 10 - 20 mg 06/22/23 16:04 Labetalol (Prefilled) 20 Mg/4 Ml IV 06/23/23 16:04 Q10M PRN PRN maintain BP parameters with HR >/=60 Melatonin 3 mg 06/22/23 16:04 Melatonin 3 Mg Tablet PO QHS PRN PRN INSOMNIA Ondansetron HCl 4 mg 06/22/23 16:04 Ondansetron 4 Mg/2 Ml Vial IV Q8H PRN PRN NAUSEA/VOMITING Prochlorperazine Edisylate 5 mg 06/22/23 16:04 Prochlorperazine 10 Mg/2 Ml Vial IV Q4H PRN PRN Breakthrough Nausea/Vomiting Psyllium Hydrophilic Mucilloid 1 packet 06/22/23 16:04 Psyllium 1 Packet PO DAILY PRN PRN Constipation Sodium Chloride 10 - 40 ml 06/22/23 16:27 0.9% Saline Lock 10 Ml Syringe IV UD PRN SALINE FLUSH
[2023-06-23 13:51] LABS: Bedside Glucose 157 mg/dL (74-106)
[2023-06-23 13:51] LABS: Bedside Glucose 116 mg/dL (74-106)
[2023-06-23 14:20] LABS: Hemoglobin A1c 7.1 % (3.8-5.6)
--- NOTE | 2023-06-23 14:33 | DS.PCM_ITS ---
Providers Date of Admission: 06/22/23 Primary Care Physician: Dr. Evon Franks MD Consultations 06/22/23 16:04 Consult: Tele-Neurology Routine Consulting Provider: [facility] Reason for Consult: Acute Ischemic Stroke/TIA EMERGENT Consult: No MD Notified: Yes Date Notified: 06/22/23 Time Notified: 15:09 Method of Notification: ED Physician Initiated Nursing Unit Staff Notify [facility] of Tele-Neurology Consult: Yes Reason For Visit: TIA Diagnosis Discharge Diagnosis (1) TIA (transient ischemic attack): Status: Acute Code(s): G45.9 - Transient cerebral ischemic attack, unspecified Plan TIA * Transient R eye vision blurring, Expressive aphasia/dysarthria, * MRI brain negative * ECHO showed EF of 55%, slight RV dilation and slight left atrial enlargement. Did review the patient's stress echocardiogram that he had in 2012 that showed an EF at that time that was 52%. For the RV dilation, patient did have a history of sleep apnea that was treated after they removed a benign thyroid mass and he no longer has apneic periods. This was verified by the patient's who actually counted the seconds when he would become apneic before his surgery. Did recommend that he follow-up with cardiology in regards to his echocardiogram report to see if there is anything additional would need to be done. * Patient will continue with aspirin 81 mg daily. He states that he would use enteric-coated because he is better tolerated by himself. As well as 20 mg of atorvastatin. Patient does have a history of myalgias related with rosuvastatin. Told the patient that the may need to be titrated up if he seems to tolerate 20 mg. * Patient will also have a 30-day event monitor. * Recommend the patient follow-up with neurology. Patient will be given the number of Dr. Montes but patient advised that he is welcome to follow-up with any neurologist Chronic conditions: * Hypertension: Patient off antihypertensive regimen for several years he notes, BP elevated upon presentation, given #1 will continue permissive hypertension with parent agents per stroke protocol and if becomes consistent with high blood pressure and oral regimen is needed we will add once clinically ap propriate. * Diabetes mellitus type II: Hold oral home regimen, continue home insulin regimen, ADA diet, accu checks w/ ISS hemoglobin A1c requested as noted above number 1, nutrition consulted for education and teaching * History of thyroid nodule: Status post partial thyroidectomy, TSH requested as noted. * Hyperlipidemia: Patient with history previously on a statin however he notes he did have some muscle aches with this. He is requesting deferring immediate addition. DVT Prophylaxis: Lovenox. CODE status: Full Medications at Discharge Home Medications ascorbic acid (vitamin C) 250 mg tablet 250 mg PO DAILY 11/24/22 cholecalciferol (vitamin D3) 25 mcg (1,000 unit) tablet 25 mcg PO DAILY 11/24/22 coenzyme Q10 100 mg tablet 100 mg PO DAILY 11/24/22 omega 3-zpx-fhu-fish oil 60 mg-90 mg-500 mg capsule (Fish Oil) 1 cap PO DAILY 11/24/22 pen needle, diabetic 31 gauge x 3/16 (Unifine Pentips) #1,200 ea 11/24/22 triamcinolone acetonide 0.1 % topical ointment 1 applic topical PRN PRN dry skin 11/24/22 blood sugar diagnostic (True Metrix Glucose Test Strip) #150 ea 11/25/22 insulin lispro 100 unit/mL subcutaneous pen 15 unit (0.15 mL) subcut TID #15 mL 11/25/22 metformin 500 mg tablet,extended release 24 hr 500 mg PO BID dm #180 tabs 03/14/23 insulin glargine 100 unit/mL (3 mL) subcutaneous pen 25 unit (0.25 mL) subcut QHS #25 mL 04/11/23 aspirin 81 mg chewable tablet 81 mg PO BREAKFAST #0 tabs 06/23/23 atorvastatin 20 mg tablet 20 mg PO QHS #30 tabs 06/23/23 Hospital Course Operations None Procedures 2-D Echocardiogram Summary of Care Provided Minutes Spent on Discharge: 32 Hospital Course: Patient had visual change as well as expressive aphasia. Symptoms lasted about 45 minutes. Has never had an issue like this before. Patient underwent a stroke workup with CTA of the head and neck, MRI of the brain and echocardiogram. Those results were unremarkable. Patient was seen by neurology recommends aspirin. Patient also be on statin as his cholesterol is 239 and LDL is 174. Patient previous has not tolerated rosuvastatin which caused him to have myalgias, discussed with the patient about using atorvastatin as it tends to be better tolerated but will initiate that at 20 mg. Patient seems to tolerate that the dose may need to be titrated upwards. Patient was seen by neurology who did recommend a 30-day event monitor. The patient's echocardiogram showed an EF of 55% previous stress echocardiogram in 2013 showed resting EF of 52%. Also noted on his current echocardiogram he had some mild RV dilation and left atrial enlargement. Those are nonspecific. Patient previously did have sleep apnea that was actually treated by removal of a benign thyroid tumor and he is no longer had apneic episodes. Unclear if patient does have pulmonary artery hypertension as there is no mention of his pulmonary artery systolic pressures. But would recommend patient follow-up with cardiology as outpatient to see if there is anything additional that would need to be done in regards to his echocardiogram results. Weight / BMI Weight Weight: 88.1 kg Body Mass Index (BMI) 27.8 ABG / Lab / Microbiology Data 06/23/23 07:48 06/23/23 07:48 Laboratory: Laboratory Results - last 24 hr 06/22/23 13:33: Magnesium 1.9 06/22/23 16:24: POC Glucose 197 H 06/22/23 21:49: POC Glucose 166 H 06/23/23 03:16: POC Glucose 108 H 06/23/23 07:48: WBC 4.1 L, RBC 5.52, Hgb 15.5, Hct 46.0, MCV 83.3, MCH 28.1, MCHC 33.7, RDW Std Deviation 39.8, RDW Coeff of Andrea 13.1, Plt Count 214, MPV 9. 1, Immature Gran % (Auto) 0.200, Neut % (Auto) 54.6, Lymph % (Auto) 31.1, [place] % (Auto) 11.2 H, Eos % (Auto) 2.2, Baso % (Auto) 0.7, Absolute Neuts (auto) 2.2, Absolute Lymphs (auto) 1.27, Nucleated RBC % 0, Sodium 140, Potassium 3.6, Chloride 109 H, Carbon Dioxide 26.0, Anion Gap 5, BUN 14, Creatinine 1.02, Estim Creat Clear Calc 85.02, Est GFR (MDRD) Af Amer 95, Est GFR (MDRD) Non-Af 79, BUN/Creatinine Ratio 13.7, Glucose 113 H, Hemoglobin A1c 7.0 H 06/23/23 07:48: Hemoglobin A1c 7.1 H, Calcium 8.2 L, Total Bilirubin 1.50 H, AST 11 L, ALT 16, Alkaline Phosphatase 71, Total Protein 6.2 L, Albumin 3.3, Globulin 2.9, Albumin/Globulin Ratio 1.1, Triglycerides 94, Cholesterol 239 H, LDL Cholesterol 174 H, VLDL Cholesterol 19, HDL Cholesterol 46, TSH 1.59 06/23/23 07:53: POC Glucose 116 H 06/23/23 12:00: POC Glucose 157 H Radiography Diagnostic Testing: Radiology Impression Chest X-Ray 06/22/23 14:23 IMPRESSION: No acute abnormality is seen. Electronically Signed: Harsha Bah MD at 14:39 EDT , Brain MRI 06/22/23 16:04 IMPRESSION: 1. No intracranial mass, hemorrhage, or acute territorial infarct. 2. Mild senescent changes. 3. Mild sinus disease. Electronically Signed: Jaden Wood MD at 18:17 EDT , Echocardiogram 06/22/23 16:04 Interpretation Summary Mild concentric left ventricular hypertrophy. The left ventricular ejection fraction is 55 %. Mildly dilated right ventricle. The left atrium is mildly enlarged. Bubble contrast study is negative for PFO/ASD. Ordering Physician: Criss Odonnell Referring Physician: Evon Franks M.D. Performed By: Christen Chavez RCS D/C Instructions Discharge Diet: 2000 Calorie Control Diet Meaningful Use Info Meaningful Use Meaningful Use Diagnoses (Choose all that apply): Ischemic CVA CVA Therapy Assessed for PT,OT and/or ST?: Yes Ischemic Stroke Antithrombotic order at d/c?: No Reason antithrombotic not ordered: Treatment not Indicated Dx of Atrial fib/flutter?: No Anticoagulant at discharge?: No Reason anticoagulant not ordered: Treatment not Indicated Statin Dosing Therapy Reference: STATIN DOSE THERAPY REFERENCE: * Patients > 75 years receive moderate or high dose statin therapy. * Patients 75 years or YOUNGER should receive HIGH intensity statin dose unless contraindicated. You will be required to document reason for non-treatment if statin daily dose does not meet guidelines. HIGH DOSE STATIN THERAPY DAILY Atorvastatin > than or = to 40 mg Rosuvastatin > than or = to 20 mg Amlodipine + Atorvastatin > than or = to 2.5/40 mg Ezetimibe + Simvastatin 10/80 mg Simvastatin 80mg Statins at discharge?: Yes If patient is 75 or younger, pt will be discharged on HIGH intensity statin.: No High intensity statin for patient 75 or younger not ordered due to: Previously has not tolerated rosuvastatin so initiating atorvastatin 20 mg daily to see if he tolerates that and then patient will follow-up with his primary care provider to see if that can be uptitrated. Primary Dx Acute Ischemic CVA?: Yes IV thrombolytic ordered during stay?: No Reason IV thrombolytic not ordered: Treatment not Indicated Discharge Plan Admission Admit Date/Time: 06/22/23 15:07 Primary Reason for Your Visit: TIA Attending Provider: Van Reyna Primary Care Provider: Evon Franks Consulting Providers: Mohamud Boland; Isabel Muñoz; Catarina Quinonez; Iraida Newsome; Shakila Chavira; Vishal Pena; Arelis Childs; Gurpreet Pérez; Amadeo Butterfield; Mirella Stephens; Jaden Mendoza; Татьяна Lin; Reggie Garcia; Judith Nicole; Jona Silva; Deondre Nevarez; Matt Avalos; Erum Aguero; Nubia Lorenz; Criss Odonnell Instructions Additional Instructions / Restrictions: Your symptoms are consistent with TIA. As we discussed, this seems extremely unlikely to be due to any type of seizure activity as you have never had a seizure before and likely not associated with atypical migraine as you are were not have any new headache symptoms. So treatment will be aspirin 81 mg daily and because your cholesterol is high we do recommend that you be on a statin medication. Atorvastatin tends to be better tolerated with people with prior history of muscle aches with other statins. Will start at a low at 20 mg daily but if you seem to tolerate that then that should be increased over time to ideally 80 if that is possible. Please follow-up with neurology as outpatient Your echocardiogram for the most part looked okay but as we mentioned there was some slight dilation of your right ventricle and left atrial enlargement. Those are nonspecific but I do recommend they follow-up with cardiology for further follow-up in the coming months. Discharge Orders/Prescriptions Prescriptions: New aspirin 81 mg Tablet,Chewable 81 mg PO BREAKFAST Qty: 0 0RF atorvastatin 20 mg tablet 20 mg PO QHS Qty: 30 1RF Continued (DME) pen needle, diabetic [Unifine Pentips] 31 gauge x 3/16 needle See Rx Instructions .ROUTE .MEDSUPPLY Qty: 1200 Patient Comments: use as directed Rx Instructions: As directed triamcinolone acetonide 0.1 % ointment 1 applic topical PRN PRN (Reason: dry skin) Patient Comments: APPLY TO THE AFFECTED AREA(S) THREE TIMES DAILY NEEDED cholecalciferol (vitamin D3) 25 mcg (1,000 unit) tablet 25 mcg PO DAILY ascorbic acid (vitamin C) 250 mg tablet 250 mg PO DAILY omega 9-kmi-nnv-fish oil [Fish Oil] 60-90-500 mg capsule 1 cap PO DAILY coenzyme Q10 100 mg tablet 100 mg PO DAILY (DME) True Metrix Glucose Test Strip Strip See Rx Instructions .Route Qty: 150 11RF Rx Instructions: 5 times daily insulin lispro 100 unit/mL insulin pen 15 unit subcut TID Qty: 15 5RF insulin glargine 100 unit/mL (3 mL) insulin pen 25 unit subcut QHS Qty: 25 3RF Held metformin 500 mg tablet extended release 24 hr 500 mg PO BID Qty: 180 3RF Hold Instructions: Resume on 06/27/23. Other Ambulatory Orders: 30 Day Event Recorder Preventi (Urgent) Timeframe: 1 Day Facility: [facility] - Location: Cardiovascular Services Ordered By: Dr. Van Reyna Referrals / Follow Up: [facility] [Provider Group] - Within 1 Month [facility] [Provider Group] - Within 3 Months Evon Franks MD [Primary Care Provider] - Within 2 Weeks Disposition Disposition (needs filled in before D/C Order can be placed): Home, Self Care Charges/Coding Visit Charges Inpatient E&M: 56293 Disch Hosp >30min
[2023-06-23 15:16] VITALS: BMI 27.8
--- NOTE | 2023-06-23 16:23 | CHAPLAIN ---
Type of Pastoral Visit _x__ Initial Visit ___ Follow-up Visit ___ On-call Visit ___ General Patient Visit ___ Spiritual Assessment ___ Family Conference ___ Bereavement ___ Rapid Response ___ Code Blue ___ Other (describe below) Pastoral Care Referral From _x__ Patient ___ Family ___ Nurse ___ Physician ___ Roaster Operator ___ Software Engineer Kernel ___ Other (describe below) Sacrament/Intervention _x__ Active listening ___ Anointing ___ Gnosticism ___ Bereavement ___ Communion ___ Lora exploration ___ ___ Life review ___ Prayer ___ Reconciliation ___ Sacrament of Sick _x__ Supportive presence ___ Wedding ___ Other (describe below) Pastoral Comments patient was getting ready for discharge when this visit was made; patient and spouse are in the room and both report thankfulness to God and hospital for good results and good care; pt expresses appreciation for checking on his needs but believes he is well and has no other concerns now
== END 2023-06-23 14:41 | disposition home or self-care (01) ==
LOC: ED 14:55 → PCU 15:15
PROVIDERS: Admitting Provider Family Medicine; Emergency Provider Emergency Medicine; PCP Internal Medicine
DX: G45.9 Transient cerebral ischemic attack, unspecified (principal); E11.9 Type 2 diabetes mellitus without complications; Z79.4 Long term (current) use of insulin; E78.5 Hyperlipidemia, unspecified; R47.1 Dysarthria and anarthria; H53.8 Other visual disturbances; R47.01 Aphasia; I10 Essential (primary) hypertension; Z79.899 Other long term (current) drug therapy; E04.1 Nontoxic single thyroid nodule
CPT/HCPCS: 36415; 70450; 70496; 70498; 70551; 71045; 80048; 80053; 80061; 82962; 83036; 83735; 84443; 84484; 85025; 85610; 85730; 93005; 93306; 94668; 94762; 96360; 96361; 99221; 99285; J7030; Q9967; G0378

== ENCOUNTER 2024-07-27 12:58 | Day surgery (SDC) | payer BC, SELFPAY ==
--- NOTE | 2024-07-26 13:19 | PAT.ANESEVAL ---
Pre-Assessment Diagnosis/Proposed Procedure Planned Operative Procedure(s): CSCOPE Anesthesia History Anesthesia History - fuller brush man: Anesthesia History - fuller brush man Hx Hospitalization No 07/26/24 13:09 Any Problems With Anesthesia No 07/26/24 13:09 Cholinesterase deficiency No 07/26/24 13:09 You/Your Family Experience No 07/26/24 13:09 fever (hyperthermia) with Relationship Recent Exposure to Contagious Disease Does patient have nerve No 07/26/24 13:09 stimulator Patient instructed to have device shut off --Does patient have Pacemaker or ICD? When Was Last Pacemaker Check QUESTION #4 FULL TEXT: You/Your Family Experience fever (hyperthermia) with Anesthesia Last Oral Intake Last Oral intake: Last Oral Intake NPO since Meds taken in AM with sips of water? Meds patient instructed to take am of surgery PONV PONV - fuller brush man: PONV - fuller brush man Female No 07/26/24 13:09 HX of Motion Sickness No 07/26/24 13:09 HX of N/V After Surgery No 07/26/24 13:09 Non-Smoker Yes 07/26/24 13:09 Duration of Surgery greater No 07/26/24 13:09 than 60 minutes Number of Risk Factors 1 07/26/24 13:09 PONV Score Low Risk 07/26/24 13:09 Height & Weight Height & Weight: Anesthesia: Height & Weight Height 5 ft 10 in 05/11/24 09:22 Respiratory Assessment Respiratory Assessment - fuller brush man: Respiratory Tract Infection Hx - fuller brush man Hx Respiratory Tract Infection No 07/26/24 13:09 STOP Sleep Apnea STOP Sleep Apnea - fuller brush man: STOP Sleep Apnea - fuller brush man Hx Hypertension No 07/26/24 13:09 Hx Sleep Apnea No 07/26/24 13:09 CPAP No 03/22/24 10:39 BIPAP No 03/22/24 10:39 Do you snore loudly (louder No 07/26/24 13:09 than talking or can be heard Do you often feel tired/ No 07/26/24 13:09 fatigued/ sleepy during daytime? Has anyone observed you stop No 07/26/24 13:09 breathing during sleep? STOP Results Negative 07/26/24 13:09 QUESTION #5 FULL TEXT : Do you snore loudly (louder than talking or can be heard through closed doors)? Tobacco Use History Tobacco Use History - fuller brush man: Tobacco Use History - fuller brush man Tobacco Use Cigarettes 03/22/24 10:39 Smoking Status Never smoker 07/26/24 13:09 Hx Tobacco Use No 07/26/24 13:09 Years Smoking Packs Smoked per Day Smoking Cessation Date was within the last 15 years Hx Smoking Cessation Date Hx Smoking Cessation Counseling Hematologic Medial History Hematologic Hx - fuller brush man: Hematologic Medical Hx - ground equipment mechanic Hx of Blood Transfusion No 07/26/24 13:09 Hx of Transfusion in last 3 No 07/26/24 13:09 Months Date of Last Transfusion (if within last 3 months) Ever experience any problems No 07/26/24 13:09 with transfusion(s)? Specify any problems Hx of Preganancy in last 3 N/A 07/26/24 13:09 Months Nurse Filling Out Transfusion NBUCHER 07/26/24 13:09 & Questions: Date: 07/26/24 07/26/24 13:09 Time: 13:10 07/26/24 13:09 Patient unable to answer at this time (ie. confused, unrespo /Reproduction History /Reproductive History - fuller brush man: /Reproductive Hx- fuller brush man Hx Now No 07/26/24 13:09 Gestational Age (in weeks): EDC: Hx Hx Para Hx Section SAB No 07/26/24 13:09 [facility] Medical History (Updated 07/26/24 @ 13:13 by Marilynn Lindsay) Wears glasses Insulin dependent diabetes mellitus Diabetes Non-smoker History of Holter monitoring History of echocardiogram History of stress test Family history of malignant neoplasm of colon in father Colon cancer screening Cellulitis, face HTN (hypertension) History of thyroid nodule History of diabetes mellitus Kidney stone Hyperlipidemia DMII (diabetes mellitus, type 2) Home Medications ?Medication ?Instructions ?Recorded ?Last Taken ?Type ascorbic acid (vitamin C) 250 mg 250 mg PO DAILY 11/24/22 Unknown History tablet cholecalciferol (vitamin D3) 25 25 mcg PO DAILY 11/24/22 Unknown History mcg (1,000 unit) tablet coenzyme Q10 100 mg tablet 100 mg PO DAILY 11/24/22 Unknown History omega 3-ugp-otn-fish oil 60 mg-90 1 cap PO DAILY 11/24/22 Unknown History mg-500 mg capsule (Fish Oil) triamcinolone acetonide 0.1 % 1 applic topical PRN PRN dry skin 11/24/22 Unknown History topical ointment aspirin 81 mg chewable tablet 81 mg PO BREAKFAST #0 tabs 06/23/23 07/23/24 Rx blood sugar diagnostic (True #150 ea 11/25/23 Unknown Rx Metrix Glucose Test Strip) blood-glucose meter (True Metrix #1 ea 11/25/23 Unknown Rx Glucose Meter) lancets 30 gauge (BD Microtainer #100 ea 11/25/23 Unknown Rx Lancet) pen needle, diabetic 31 gauge x #1,200 ea 12/16/23 Unknown Rx 3/16 (Unifine Pentips) insulin glargine 100 unit/mL (3 25 unit (0.25 mL) subcut QHS #25 mL 07/13/24 Unknown Rx mL) subcutaneous pen insulin lispro 100 unit/mL 15 unit (0.15 mL) subcut TID #15 mL 07/13/24 Unknown Rx subcutaneous pen Allergy/AdvReac Type Severity Reaction Status Date / Time acetaminophen (From Tylenol) Allergy Intermediate Rash, lip Verified 07/26/24 13:07 and eye swelling red dye Allergy Intermediate Cheeks Verified 07/26/24 13:07 flush, swelling amoxicillin AdvReac Mild Diarrhea Verified 07/26/24 13:07 Family History (Updated 05/11/24 @ 09:18 by Lynsey Ryan) Grandfather Alcoholism Paternal Grandmother Diabetes Paternal Father Diabetes Melanoma Colon cancer, Onset Age: 75 Mother History of permanent cardiac pacemaker placement Surgical History Hx of colonoscopy History of partial thyroidectomy Hx of thyroidectomy Hx of appendectomy Social History (Updated 05/11/24 @ 09:18 by Lynsey Ryan) household members: spouse current occupational status: employed Smoking Status: Never smoker alcohol intake: never substance use type: does not use what type of physical activity do you participate in: walking frequency: 1-2 times per week Audit: Pertinent Findings Pertinent Findings EKG Perinent findings: 06/22/2019. Normal sinus rhythm early repolarization Echo (EF%) pertinent findings: 06/22/2023. Mild concentric LVH. EF 55%. Negative for PFO/ASD. Recommendation Anesthesia Recommendation Anesthesia recommendation: OPTIMIZED for anesthesia
[2024-07-27] VITALS (7 sets, daily range): BP systolic 92–114; BP diastolic 49–82; PULSE 62–78; RESP 14–17; TEMP 36.3–36.7; O2SAT 95–99; BMI 26.9
--- NOTE | 2024-07-27 13:03 | PCM.HP.STD ---
HPI - General General Date of Admission: 07/27/24 Date of Service: 07/27/24 Chief Complaint: Screening colonoscopy HPI Narrative WES MCCARTY, is a 63 M who presents today for screening colonoscopy. He had a colonoscopy proximately 25 years ago for some blood in the stool. It was secondary to hemorrhoids. He denies any pain, cramping, chest pain or shortness of breath. He has a past medical history of type 2 diabetes and mild hypercholesterolemia which are under control. [facility] Medical History Wears glasses Insulin dependent diabetes mellitus Diabetes Non-smoker History of Holter monitoring History of echocardiogram History of stress test Family history of malignant neoplasm of colon in father Colon cancer screening Cellulitis, face HTN (hypertension) History of thyroid nodule History of diabetes mellitus Kidney stone Hyperlipidemia DMII (diabetes mellitus, type 2) Home Medications ?Medication ?Instructions ?Recorded ?Last Taken ?Type ascorbic acid (vitamin C) 250 mg 250 mg PO DAILY 11/24/22 Unknown History tablet cholecalciferol (vitamin D3) 25 25 mcg PO DAILY 11/24/22 Unknown History mcg (1,000 unit) tablet coenzyme Q10 100 mg tablet 100 mg PO DAILY 11/24/22 Unknown History omega 8-dfa-rro-fish oil 60 mg-90 1 cap PO DAILY 11/24/22 Unknown History mg-500 mg capsule (Fish Oil) triamcinolone acetonide 0.1 % 1 applic topical PRN PRN dry skin 11/24/22 Unknown History topical ointment aspirin 81 mg chewable tablet 81 mg PO BREAKFAST #0 tabs 06/23/23 07/23/24 Rx blood sugar diagnostic (True #150 ea 11/25/23 Unknown Rx Metrix Glucose Test Strip) blood-glucose meter (True Metrix #1 ea 11/25/23 Unknown Rx Glucose Meter) lancets 30 gauge (BD Microtainer #100 ea 11/25/23 Unknown Rx Lancet) pen needle, diabetic 31 gauge x #1,200 ea 12/16/23 Unknown Rx 3/16 (Unifine Pentips) insulin glargine 100 unit/mL (3 25 unit (0.25 mL) subcut QHS #25 mL 07/13/24 Unknown Rx mL) subcutaneous pen insulin lispro 100 unit/mL 15 unit (0.15 mL) subcut TID #15 mL 07/13/24 Unknown Rx subcutaneous pen Allergy/AdvReac Type Severity Reaction Status Date / Time acetaminophen (From Tylenol) Allergy Intermediate Rash, lip Verified 07/26/24 13:07 and eye swelling red dye Allergy Intermediate Cheeks Verified 07/26/24 13:07 flush, swelling amoxicillin AdvReac Mild Diarrhea Verified 07/26/24 13:07 Family History Grandfather Alcoholism Paternal Grandmother Diabetes Paternal Father Diabetes Melanoma Colon cancer, Onset Age: 75 Mother History of permanent cardiac pacemaker placement Surgical History Hx of colonoscopy History of partial thyroidectomy Hx of thyroidectomy Hx of appendectomy Social History household members: spouse current occupational status: employed Smoking Status: Never smoker alcohol intake: never substance use type: does not use what type of physical activity do you participate in: walking frequency: 1-2 times per week ROS Constitutional Constitutional: Denies fatigue, fever(s), poor appetite, weight gain or weight loss Gastrointestinal Gastrointestinal: Denies belching, bloating, change in bowel habits, change in stool character, chewing difficulty, coffee ground emesis, constipation, cramping, diarrhea, dyspepsia, dysphagia, early satiety, excessive flatus, fecal incontinence, heartburn, hematemesis, hematochezia, hemorrhoids, loose stools, melena, nausea, odynophagia, rectal bleeding, tenesmus, vomiting or weight changes Physical Exam Const alert and no apparent distress HEENT head/scalp atraumatic and moist oral mucous membranes Neuro Sensorium / Orientation: awake and alert Psych affect normal Assessment & Plan Assessment/Plan (1) Colon cancer screening: PLAN: He was explained alternatives, risk and benefits include normal study bleeding, infection, sepsis, perforation, need for more surgery . He will have an ASA of 3.
--- NOTE | 2024-07-27 13:09 | PCM.PRE.AN2 ---
ASA Classification* ASA Classification ASA Classification: 2 Assessment & Plan Anesthesia* Anesthesia Assessment Anesthesia Assessment: Discussed sedation and/or anesthesia options, risks, benefits, and alternatives with patient/parents/legal guardian/POA. Questions invited. The patient/parents/legal guardian/POA seems to understand and agrees to proceed with anesthesia plan. Reviewed the physical assessment, medical history, allergy history and patient home medications list prior to surgery/procedure/anesthetic and documented any changes. Performed airway and anesthesia risk assessments. Anesthesia Type Anesthesia Type: MAC Anesthesia Focused Assessment* Airway Assessment Mouth opens: >3 cm Mallampati Score: II Focused Labs Anesthesia Preop lab: CBC WBC 4.1 K/mm3 (4.4-11.0) L 06/23/23 07:48 06/23/23 RBC 5.52 M/mm3 (4.6-6.2) 06/23/23 07:48 06/23/23 Hgb 15.5 g/dL (13.0-16.5) 06/23/23 07:48 06/23/23 Hct 46.0 % (40-54) 06/23/23 07:48 06/23/23 Plt Count 214 K/mm3 (150-450) 06/23/23 07:48 06/23/23 CHEMISTRY Potassium 3.6 mmol/L (3.5-5.1) 06/23/23 07:48 06/23/23 Sodium 140 mmol/L (136-145) 06/23/23 07:48 06/23/23 Magnesium 1.9 mg/dL (1.6-2.6) 06/22/23 13:33 06/22/23 BUN 14 mg/dL (7-18) 06/23/23 07:48 06/23/23 Creatinine 1.02 mg/dL (0.70-1.30) 06/23/23 07:48 06/23/23 Glucose 113 mg/dL (74-106) H 06/23/23 07:48 06/23/23 POC Glucose 157 mg/dL (74-106) H 06/23/23 12:00 06/23/23 TSH 1.59 uIU/mL (0.358-3.74) 06/23/23 07:48 06/23/23 COAG PT 14.0 SECONDS (11.7-14.9) 06/22/23 13:33 06/22/23 Pre-Assessment Diagnosis/Proposed Procedure Planned Operative Procedure(s): CSCOPE Anesthesia History Anesthesia History - merchandise shopper: Anesthesia History - merchandise shopper Hx Hospitalization No 07/26/24 13:09 Any Problems With Anesthesia No 07/26/24 13:09 Cholinesterase deficiency No 07/26/24 13:09 You/Your Family Experience No 07/26/24 13:09 fever (hyperthermia) with Relationship Recent Exposure to Contagious Disease Does patient have nerve No 07/26/24 13:09 stimulator Patient instructed to have device shut off --Does patient have Pacemaker or ICD? When Was Last Pacemaker Check QUESTION #4 FULL TEXT: You/Your Family Experience fever (hyperthermia) with Anesthesia Last Oral Intake Last Oral intake: Last Oral Intake NPO since Meds taken in AM with sips of water? Meds patient instructed to take am of surgery PONV PONV - merchandise shopper: PONV - merchandise shopper Female No 07/26/24 13:09 HX of Motion Sickness No 07/26/24 13:09 HX of N/V After Surgery No 07/26/24 13:09 Non-Smoker Yes 07/26/24 13:09 Duration of Surgery greater No 07/26/24 13:09 than 60 minutes Number of Risk Factors 1 07/26/24 13:09 PONV Score Low Risk 07/26/24 13:09 Height & Weight Height & Weight: Anesthesia: Height & Weight Height 5 ft 10 in 05/11/24 09:22 Respiratory Assessment Respiratory Assessment - merchandise shopper: Respiratory Tract Infection Hx - merchandise shopper Hx Respiratory Tract Infection No 07/26/24 13:09 STOP Sleep Apnea STOP Sleep Apnea - merchandise shopper: STOP Sleep Apnea - merchandise shopper Hx Hypertension No 07/26/24 13:09 Hx Sleep Apnea No 07/26/24 13:09 CPAP No 03/22/24 10:39 BIPAP No 03/22/24 10:39 Do you snore loudly (louder No 07/26/24 13:09 than talking or can be heard Do you often feel tired/ No 07/26/24 13:09 fatigued/ sleepy during daytime? Has anyone observed you stop No 07/26/24 13:09 breathing during sleep? STOP Results Negative 07/26/24 13:09 QUESTION #5 FULL TEXT : Do you snore loudly (louder than talking or can be heard through closed doors)? 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 Specify any problems Hx of Preganancy in last 3 N/A 07/26/24 13:09 Months Nurse Filling Out Transfusion NBUCHER 07/26/24 13:09 & Questions: Date: 07/26/24 07/26/24 13:09 Time: 13:10 07/26/24 13:09 Patient unable to answer at this time (ie. confused, unrespo /Reproduction History /Reproductive History - merchandise shopper: /Reproductive Hx- merchandise shopper Hx Now No 07/26/24 13:09 Gestational Age (in weeks): EDC: Hx Hx Para Hx Section SAB No 07/26/24 13:09 [facility] Medical History Wears glasses Insulin dependent diabetes mellitus Diabetes Non-smoker History of Holter monitoring History of echocardiogram History of stress test Family history of malignant neoplasm of colon in father Colon cancer screening Cellulitis, face HTN (hypertension) History of thyroid nodule History of diabetes mellitus Kidney stone Hyperlipidemia DMII (diabetes mellitus, type 2) Home Medications ?Medication ?Instructions ?Recorded ?Last Taken ?Type ascorbic acid (vitamin C) 250 mg 250 mg PO DAILY 11/24/22 Unknown History tablet cholecalciferol (vitamin D3) 25 25 mcg PO DAILY 11/24/22 Unknown History mcg (1,000 unit) tablet coenzyme Q10 100 mg tablet 100 mg PO DAILY 11/24/22 Unknown History omega 3-vna-bga-fish oil 60 mg-90 1 cap PO DAILY 11/24/22 Unknown History mg-500 mg capsule (Fish Oil) triamcinolone acetonide 0.1 % 1 applic topical PRN PRN dry skin 11/24/22 Unknown History topical ointment aspirin 81 mg chewable tablet 81 mg PO BREAKFAST #0 tabs 06/23/23 07/23/24 Rx blood sugar diagnostic (True #150 ea 11/25/23 Unknown Rx Metrix Glucose Test Strip) blood-glucose meter (True Metrix #1 ea 11/25/23 Unknown Rx Glucose Meter) lancets 30 gauge (BD Microtainer #100 ea 11/25/23 Unknown Rx Lancet) pen needle, diabetic 31 gauge x #1,200 ea 12/16/23 Unknown Rx 3/16 (Unifine Pentips) insulin glargine 100 unit/mL (3 25 unit (0.25 mL) subcut QHS #25 mL 07/13/24 Unknown Rx mL) subcutaneous pen insulin lispro 100 unit/mL 15 unit (0.15 mL) subcut TID #15 mL 07/13/24 Unknown Rx subcutaneous pen Allergy/AdvReac Type Severity Reaction Status Date / Time acetaminophen (From Tylenol) Allergy Intermediate Rash, lip Verified 07/26/24 13:07 and eye swelling red dye Allergy Intermediate Cheeks Verified 07/26/24 13:07 flush, swelling amoxicillin AdvReac Mild Diarrhea Verified 07/26/24 13:07 Family History Grandfather Alcoholism Paternal Grandmother Diabetes Paternal Father Diabetes Melanoma Colon cancer, Onset Age: 75 Mother History of permanent cardiac pacemaker placement Surgical History Hx of colonoscopy History of partial thyroidectomy Hx of thyroidectomy Hx of appendectomy Social History household members: spouse current occupational status: employed Smoking Status: Never smoker alcohol intake: never substance use type: does not use what type of physical activity do you participate in: walking frequency: 1-2 times per week Review of Systems (Anesthesia) ROS Narrative System reviewed and no additional complaints, except as documented.
[2024-07-27] MEDS: Lactated Ringers 1,000 ML 15 ML IV (13:33)
[2024-07-27 13:56] LABS: Bedside Glucose 153 mg/dL (74-106)
--- NOTE | 2024-07-27 14:15 | COLBX_PTH ---
PATIENT: WES MCCARTY LOC: EN U#:[id number] AGE/SX: 63/M ROOM: RE07/27/[address]: Dr. Gaurav Mills DO : 1960 BED: DIS: 07/27/2024 SPEC #: [id number] RECD: 07/27/24 16:58 STATUS: LOPEZ WILDER #: [id number] LEXI: 07/27/24 14:[address]: Gaurav Mills DEPT: SURGICAL PATHOLOGY RECD BY: Tim Seth ENTERED: 07/31/24 08:37 SP TYPE: COLON BX OTHR DR: Dr. Evon Franks MD Tissues: A - Ascending colon B - Transverse colon C - Sigmoid colon biopsy Procedures: Surgery Specimen Level IV HEADER OPERATION: Colonoscopy, biopsy, polypectomy PRE-OP DIAGNOSIS: Colon cancer screening TISSUE SUBMITTED: A- Ascending colon polyp, B- Transverse colon biopsy, C- Sigmoid colon biopsy MICROSCOPIC DIAGNOSIS A. Ascending colon, polyp, biopsy: Tubular adenoma. B. Transverse colon, biopsy: No specific pathologic change. C. Sigmoid colon, polyp, biopsy: Polypoid colonic mucosa with superficial hyperplastic change (deeper sections examined). MICROSCOPIC DESCRIPTION Slides are reviewed. GROSS DESCRIPTION A. Received in formalin in a container labeled with the patient's name, date of , and ascending colon polyp are multiple goldsmith-pink fragments of mucosal tissue measuring 0.9 x 0.5 x 0.3 cm in aggregate. Submitted in toto in A1. B. Received in formalin in a container labeled with the patient's name, date of , and transverse colon are 2 goldsmith-pink fragments of mucosal tissue measuring 0.1 x 0.1 x 0.1 cm and 0.2 x 0.2 x 0.1 cm. Submitted in toto in B1. C. Received in formalin in a container labeled with the patient's name, date of , and sigmoid colon polyp biopsy is a 0.3 x 0.2 x 0.2 cm fragment of goldsmith-pink mucosal tissue. Submitted in toto in C1. [facility] 07-31-2024 CPT:20156e5
--- NOTE | 2024-07-27 14:58 | OP.CCLET_ITS ---
07/27/2024 Evon Franks [facility] [address] [place] [address] Re : Colonoscopy procedure for Gary Miranda Dear Dr. Franks This procedure was performed on Saturday, July 27, 2024. My impressions and recommendations are as follows: Impressions : - Diverticulosis in the sigmoid colon, in the descending colon and at the splenic flexure. - Two 1 to 2 mm polyps in the sigmoid colon, removed with a cold biopsy forceps. Resected and retrieved. - One 10 mm polyp in the ascending colon, removed with a hot snare. Resected and retrieved. Recommendations : - Repeat colonoscopy in 3 years for surveillance. - Continue present medications. My findings are described in the full procedure note, which is enclosed. If I can be of further assistance, please feel free to contact me at . Sincerely, Gaurav Mills, 07/27/2024 2:58:05 PM This report has been signed electronically.
--- NOTE | 2024-07-27 14:58 | OP.COLON_ITS ---
Patient Name: Gary Miranda Procedure Date: 07/27/2024 2:19 PM Date of : 1960 Age: 63 Procedure: Colonoscopy Indications: Screening for colorectal malignant neoplasm Providers: Gaurav Mills DO Referring MD: Evon Franks Medicines: Monitored Anesthesia Care Patient Profile: This is a 63 year old male. Refer to note in patient chart for documentation of history and physical. Last Colonoscopy: several years ago. Complications: No immediate complications. Procedure: Pre-Anesthesia Assessment: - Prior to the procedure, a History and Physical was performed, and patient medications and allergies were reviewed. The patient is competent. The risks and benefits of the procedure and the sedation options and risks were discussed with the patient. All questions were answered and informed consent was obtained. Patient identification and proposed procedure were verified by the physician in the pre-procedure area. Mental Status Examination: alert and oriented. Airway Examination: normal oropharyngeal airway and neck mobility. Respiratory Examination: clear to auscultation. CV Examination: normal. Prophylactic Antibiotics: The patient does not require prophylactic antibiotics. Prior Anticoagulants: The patient has taken no anticoagulant or antiplatelet agents except for NSAID medication. ASA Grade Assessment: II - A patient with mild systemic disease. After reviewing the risks and benefits, the patient was deemed in satisfactory condition to undergo the procedure. The anesthesia plan was to use monitored anesthesia care (MAC). Immediately prior to administration of medications, the patient was re-assessed for adequacy to receive sedatives. The heart rate, respiratory rate, oxygen saturations, blood pressure, adequacy of pulmonary ventilation, and response to care were monitored throughout the procedure. The physical status of the patient was re-assessed after the procedure. After I obtained informed consent, the scope was passed under direct vision. Throughout the procedure, the patient's blood pressure, pulse, and oxygen saturations were monitored continuously. The Colonoscope was introduced through the anus and advanced to the cecum, identified by appendiceal orifice and ileocecal valve. The colonoscopy was performed without difficulty. The patient tolerated the procedure well. The quality of the bowel preparation was adequate. The ileocecal valve, appendiceal orifice, and rectum were photographed. Scope In: 2:32:59 PM Scope Withdrawal Time 0 hours 12 minutes 20 seconds Scope Out: 2:50:53 PM Total Procedure Duration Time 0 hours 17 minutes 54 seconds Findings: The perianal and digital rectal examinations were normal. Multiple small-mouthed diverticula were found in the sigmoid colon, descending colon and splenic flexure. Two sessile polyps were found in the sigmoid colon. The polyps were 1 to 2 mm in size. These polyps were removed with a cold biopsy forceps. Resection and retrieval were complete. Verification of patient identification for the specimen was done. Estimated blood loss was minimal. A 10 mm polyp was found in the ascending colon. The polyp was sessile. The polyp was removed with a hot snare. Resection and retrieval were complete. Verification of patient identification for the specimen was done. Estimated blood loss was minimal. Impression: - Diverticulosis in the sigmoid colon, in the descending colon and at the splenic flexure. - Two 1 to 2 mm polyps in the sigmoid colon, removed with a cold biopsy forceps. Resected and retrieved. - One 10 mm polyp in the ascending colon, removed with a hot snare. Resected and retrieved. Recommendation: - Repeat colonoscopy in 3 years for surveillance. - Continue present medications. Procedure Code(s): --- Professional --- 47008, Colonoscopy, flexible; with removal of tumor(s), polyp(s), or other lesion(s) by snare technique 95857, 59, Colonoscopy, flexible; with biopsy, single or multiple CPT copyright 2021 [employer]. All rights reserved. The codes documented in this report are preliminary and upon professional fee coder review may be revised to meet current compliance requirements. Gaurav Mills DO 07/27/2024 2:58:05 PM This report has been signed electronically. Number of Addenda: 0 Note Initiated On: 07/27/2024 2:19 PM
--- NOTE | 2024-07-27 15:04 | PCM.POST.ANE ---
Anesthesia: Postop Eval I Current Vital Signs Temperature: 97.3 F Pulse Rate: 67 Blood Pressure: 92/50 Respiratory Rate: 16 Pulse Ox: 95 Assessment Airway patent: Yes Spontaneous unlabored respirations: Yes nausea: No Vomiting: No Anesthesia Complication: No Fluid Hydration Crystalloid volume administer (ml): 100 Total IV fluid infused: 100 Progress Note Anesthesia document: Postop Eval 1 completed: Yes
--- NOTE | 2024-07-27 15:07 | POSTOPAN2_ITS ---
Anesthesia Postop Eval I Sum Postop Eval Completion status Anesthesia document: Postop Eval 1 completed: Yes Anesthesia Postop Eval I Summary Anesthesia Postop Eval I Summary: Anesthesia Postop Eval I: Assessment Summary Airway patent Yes 07/27/24 15:04 SKY LINE [email or web address] Spontaneous unlabored Yes 07/27/24 15:04 SKY LINE [email or web address] respirations Mental status nausea No 07/27/24 15:04 SKY LINE [email or web address].[email or web address] Vomiting No 07/27/24 15:04 SKY LINE [email or web address] Anesthesia Postop Eval I: Fluid Summary Crystalloid volume administer 100 07/27/24 15:04 SKY LINE [email or web address].[email or web address] (ml) Colloids volume administered ( ml) Blood Product volume administered (ml) Total IV fluid infused 100 07/27/24 15:04 SKY LINE [email or web address] Anesthesia Postop Eval I: Summary Notes Anesthesia Complication No 07/27/24 15:04 SKY LINE [email or web address] Anesthesia Complication Comment: Post-operative progress note Anesthesia: Postop Eval II Evaluation Mental status: Awake Pain Level: 2 nausea: No Vomiting: No
--- NOTE | 2024-07-27 15:07 | PCM.POSTANE2 ---
Anesthesia Postop Eval I Sum Postop Eval Completion status Anesthesia document: Postop Eval 1 completed: Yes Anesthesia Postop Eval I Summary Anesthesia Postop Eval I Summary: Anesthesia Postop Eval I: Assessment Summary Airway patent Yes 07/27/24 15:04 ELECTRICAL PROSPECTING OPERATOR.[email or web address] Spontaneous unlabored Yes 07/27/24 15:04 ELECTRICAL PROSPECTING OPERATOR.TNES respirations Mental status nausea No 07/27/24 15:04 ELECTRICAL PROSPECTING OPERATOR.TNES Vomiting No 07/27/24 15:04 ELECTRICAL PROSPECTING OPERATOR.TNES Anesthesia Postop Eval I: Fluid Summary Crystalloid volume administer 100 07/27/24 15:04 ELECTRICAL PROSPECTING OPERATOR.TNES (ml) Colloids volume administered ( ml) Blood Product volume administered (ml) Total IV fluid infused 100 07/27/24 15:04 ELECTRICAL PROSPECTING OPERATOR.TNES Anesthesia Postop Eval I: Summary Notes Anesthesia Complication No 07/27/24 15:04 ELECTRICAL PROSPECTING OPERATOR.TNES Anesthesia Complication Comment: Post-operative progress note Anesthesia: Postop Eval II Evaluation Mental status: Awake Pain Level: 2 nausea: No Vomiting: No
== END 2024-07-27 15:33 | disposition home or self-care (01) ==
LOC: EN 12:58 → AC 12:59
PROVIDERS: PCP Internal Medicine; Referring Provider Internal Medicine; Visit Provider Internal Medicine Gastroenterology
PROC: 0DJD8ZZ Inspection of Lower Intestinal Tract, Via Natural or Artificial Opening Endoscopic (ICD-10-PCS; CPT 45378; principal; 2024-07-27 14:10)
DX: Z12.11 Encounter for screening for malignant neoplasm of colon (principal); E11.9 Type 2 diabetes mellitus without complications; Z79.4 Long term (current) use of insulin; D12.2 Benign neoplasm of ascending colon; E78.00 Pure hypercholesterolemia, unspecified; I10 Essential (primary) hypertension; K57.30 Diverticulosis of large intestine without perforation or abscess without bleeding; Z79.82 Long term (current) use of aspirin
CPT/HCPCS: 45385; 45380; 82962; 88305